=== PATIENT | female | born 1950 | race Caucasian/White ===

== ENCOUNTER 2017-02-28 12:13 | Inpatient (IN) | payer MEDICARE, OTHER ==
--- NOTE | 2017-02-28 12:54 | EDM.PDOC ---
ED HISTORY OF PRESENT ILLNESS - General Chief Complaint: Respiratory Problem Stated Complaint: UNK Time Seen by Provider: 02/28/17 12:30 Source of Information: Reports: Patient History Limitations: Reports: No limitations - History of Present Illness INITIAL COMMENTS - FREE TEXT/NARRATIVE: HISTORY AND PHYSICAL: History of present illness: [Patient comes to the emergency room via EMS. She complains of cough and not feeling well for the past 5 days. She has felt feverish during this time but has not checked her temperature. Is coughing up sputum that is green to clear in color. Has felt some shortness of breath. Generalized body aches. Denies sore throat and earache. She's had decreased appetite and hasn't had the energy to bathe in the past 5 days. She denies abdominal pain, nausea, vomiting. No change in bowel or bladder. Has been taking 2 Tylenol per day and Mucinex cough syrup from time to time. She did not have a flu shot this year. EMS reports O2 sat 83% on room air upon presentation. 15L nonbreather was applied by EMS, resulting in O2 sat of 97%. Review of systems: As per history of present illness and below otherwise all systems reviewed and negative. Past medical history: As per history of present illness and as reviewed below otherwise noncontributory. Surgical history: As per history of present illness and as reviewed below otherwise noncontributory. Social history: No reported history of drug or alcohol abuse. Family history: As per history of present illness and as reviewed below otherwise noncontributory. Physical exam: O2 sat on 3 liters per NC = 95%. HEENT: Atraumatic, normocephalic. TMs are pearly oneil and without effusion bilaterally. mucous membranes moist, throat clear. neck supple, no lymphadenopathy. Lungs: Crackles to left lower lobes. Lung sounds are diminished throughout. Heart: S1S2, regular rate and rhythm. negative for clicks, rubs. Abdomen: Soft, nondistended, nontender. No masses guarding or rebound. Pelvis: Stable nontender. Genitourinary: Deferred. Rectal: Deferred. Extremities: Atraumatic, negative for cords or calf pain. No cyanosis or edema to feet or lower legs. Neurovascular unremarkable. Neuro: Awake, alert, oriented. Motor and sensory unremarkable throughout. Exam nonfocal. Diagnostics: [Chest x-ray, CBC, CMP, lactic acid, influenza swab] Therapeutics: [Normal saline 1 L at 500 mL/hour, ceftriaxone 1 g IV, azithromycin 500 mg IV, Tylenol 650 mg by mouth] Impression: [Bibasilar pneumonia] Plan: [Patient initially refuses any x-ray pending lab results. She later is agreeable to chest x-ray. Discussed with patient that her chest x-ray shows bilateral lobe pneumonia and and her labs show elevated white blood cell count. BUN 76. decreased renal function likely due to dehydration. Influenza swab is negative. Results and patient's condition are reviewed w/ Dr. Nelson, hospitalist, who agrees to accept patient as inpatient. Patient is agreeable to admission. ] Definitive disposition and diagnosis as appropriate pending reevaluation and review of above. - Related Data Allergies/ADRs: Allergies Allergy/AdvReac Type Severity Reaction Status Date / Time No Known Allergies Allergy Verified 02/28/17 12:21 Home Meds: Home Meds Aspirin [William Chewable Aspirin] 1 tab PO DAILY 12/15/14 [History] Diclofenac Sodium [Voltaren] 1 tab PO DAILY 12/15/14 [History] Doxepin [SINEquan] 12/15/14 [History] Metoprolol Succinate [Toprol XL] 0.5 tab PO BEDTIME 12/15/14 [History] Rosuvastatin [Crestor] 1 tab PO DAILY 12/15/14 [History] Valsartan [Diovan] PO DAILY 12/15/14 [History] Venlafaxine [Effexor] 2 tab PO BEDTIME 12/15/14 [History] Past Medical History Cardiovascular History: Reports: Hypertension Gastrointestinal History: Reports: None Psychiatric History: Reports: Depression - Past Surgical History Cardiovascular Surgical History: Reports: None GI Surgical History: Reports: Appendectomy Social & Family History - Family History Family Medical History: Noncontributory - Tobacco Use Smoking Status *Q: Former Smoker Years of Tobacco use: 40 Packs/Tins Daily: 1 Used Tobacco, but Quit: Yes Month Tobacco Last Used: 01/2017 - Caffeine Use Caffeine Use: Reports: Soda Caffeine Use Comment: 2 diet coke/day - Alcohol Use Days Per Week of Alcohol Use: 0 - Recreational Drug Use Recreational Drug Use: No ED ROS GENERAL - Review of Systems Review Of Systems: ROS reveals no pertinent complaints other than HPI. ED EXAM, GENERAL - Physical Exam Exam: See Below Course - Vital Signs Last Recorded V/S: Last Vital Signs Temp 99.1 F 02/28/17 12:43 Pulse 115 H 02/28/17 13:37 Resp 20 02/28/17 13:37 BP 126/82 02/28/17 13:37 Pulse Ox 92 L 02/28/17 13:37 - Orders/Labs/Meds Orders: Active Orders 24 hr Category Date Time Status Admission Status [Patient Status] [ADT] Stat ADT 02/28/17 14:41 Active Azithromycin [Zithromax] 500 mg Med 02/28/17 14:15 Active Sodium Chloride 0.9% [Normal Saline] 250 ml IV Q24H Sodium Chloride 0.9% [Normal Saline] 1,000 ml Med 02/28/17 14:00 Active IV STAT Medication Orders Azithromycin 500 mg/ Sodium (Chloride) 250 mls @ 250 mls/hr IV Q24H [facility]ZA Sodium Chloride (Normal Saline) 1,000 mls @ 500 mls/hr IV STAT ONE Stop: 02/28/17 15:59 Last Admin: 02/28/17 14:36 Dose: 500 mls/hr Labs: Laboratory Tests 02/28/17 02/28/17 02/28/17 Range/Units 12:39 12:39 12:39 WBC 15.14 H (4.0-11.0) K/uL RBC 4.04 L (4.30-5.90) M/uL Hgb 10.7 L (12.0-16.0) g/dL Hct 32.2 L (36.0-46.0) % MCV 79.7 L (80.0-98.0) fL MCH 26.5 L (27.0-32.0) pg MCHC 33.2 (31.0-37.0) g/dL RDW Std Deviation 44.1 (28.0-62.0) fl RDW Coeff of Jose 15 (11.0-15.0) % Plt Count 418 H (150-400) K/uL MPV 9.10 (7.40-12.00) fL Add Manual Diff YES Neutrophils % (Manual) 69 (48.0-80.0) % Band Neutrophils % 11 % Lymphocytes % (Manual) 6 L (16.0-40.0) % Monocytes % (Manual) 14 (0.0-15.0) % Nucleated RBC % 0.0 /100WBC Absolute Seg Neuts 10.4 Band Neutrophils # 1.7 Lymphocytes # (Manual) 0.9 Monocytes # (Manual) 2.1 Nucleated RBCs # 0 K/uL Lactate 0.9 (0.20-2.00) mmol/L Sodium 130 L (136-146) mmol/L Potassium 3.4 L (3.5-5.1) mmol/L Chloride 95 L (98-110) mmol/L Carbon Dioxide 20 L (21-31) mmol/L BUN 76 H (6.0-23.0) mg/dL Creatinine 1.6 H (0.6-1.5) mg/dL Est Cr Clr Drug Dosing 32.56 mL/min Estimated GFR (MDRD) 32.2 ml/min Glucose 156 H (60-110) mg/dL Calcium 9.7 (8.8-10.8) mg/dL Total Bilirubin 0.6 (0.1-1.5) mg/dL AST 10 (5-40) IU/L ALT 12 (8-54) IU/L Alkaline Phosphatase 103 (40-150) Total Protein 7.8 (6.0-8.0) g/dL Albumin 3.3 L (3.4-4.8) g/dL Globulin 4.5 H (2.0-3.5) g/dL Albumin/Globulin Ratio 0.7 L (1.3-2.8) Meds: Medications Generic Name Dose Route Start Last Admin Trade Name Freq PRN Reason Stop Dose Admin Azithromycin 500 mg/ Sodium 250 mls @ 250 mls/hr 02/28/17 14:15 Chloride IV Q24H [facility] Sodium Chloride 1,000 mls @ 500 mls/hr 02/28/17 14:00 02/28/17 14:36 Normal Saline IV 02/28/17 15:59 500 mls/hr STAT ONE Administration Discontinued Medications Generic Name Dose Route Start Last Admin Trade Name Freq PRN Reason Stop Dose Admin Acetaminophen 650 mg 02/28/17 14:12 Tylenol PO 02/28/17 14:13 NOW ONE Ceftriaxone Sodium 1,000 mg/ 50 mls @ 200 mls/hr 02/28/17 14:02 Sodium Chloride IV 02/28/17 14:16 ONETIME ONE Departure - Departure Time of Disposition: 14:40 Disposition: Admitted As Inpatient 67 Condition: good Clinical Impression: Pneumonia Qualifiers: Pneumonia type: due to unspecified organism Laterality: bilateral Lung location : lower lobe of lung Qualified Code(s): J18.9 - Pneumonia, unspecified organism Forms: ED Department Discharge - My Orders Last 24 Hours: My Active Orders 02/28/17 14:00 Sodium Chloride 0.9% [Normal Saline] 1,000 ml IV STAT 02/28/17 14:15 Azithromycin [Zithromax] 500 mg Sodium Chloride 0.9% [Normal Saline] 250 ml IV Q24H 02/28/17 14:41 Admission Status [Patient Status] [ADT] Stat - Assessment/Plan Last 24 Hours: My Active Orders 02/28/17 14:00 Sodium Chloride 0.9% [Normal Saline] 1,000 ml IV STAT 02/28/17 14:15 Azithromycin [Zithromax] 500 mg Sodium Chloride 0.9% [Normal Saline] 250 ml IV Q24H 02/28/17 14:41 Admission Status [Patient Status] [ADT] Stat
--- NOTE | 2017-02-28 13:45 | CR ---
EXAMINATION: Two-view chest (PA and Lateral views). HISTORY: Cough. FINDINGS: The trachea is midline. The cardiomediastinal silhouette is within normal limits. There is mild biba silar, left greater than right infiltrate. No pleural effusion or pneumothorax. Osseous structures appear unremarkable. IMPRESSION: Bibasilar, prominently left basilar infiltrate, likely representing developing pneumonia.
[2017-02-28] MEDS ORDERED: Sodium Chloride 0.9% 1,000 ML IV ONE (14:00)
[2017-02-28] MEDS ORDERED: cefTRIAXone 1,000 MG in Sodium Chloride 0.9% 50 ML IV ONE (14:02)
[2017-02-28] MEDS ORDERED: Acetaminophen 325 MG Tab PO ONE (14:12)
[2017-02-28] MEDS ORDERED: Azithromycin 500 MG in Sodium Chloride 0.9% 250 ML IV SCH (14:15)
[2017-02-28] MEDS ORDERED: cefTRIAXone 1 GM in Premix Bag 1 BAG IV ONE (15:00)
--- NOTE | 2017-02-28 15:28 | PCM.HP ---
<Jessica Lynn M - Last Filed: 02/28/17 15:39> H&P History of Present Illness - General Date of Service: 02/28/17 Admit Problem/Dx: Pneumonia Source of Information: Patient History Limitations: Reports: No limitations - History of Present Illness Initial Comments - Free Text/Narative: This 67 year old female with pmh of HTN, dyslipidemia and a smoker presented to the ED today via EMS with complaints of cold, body aches and generalized weakness. She reports she started getting a cold approximately 5 days ago and it has worsened. She is not eating or drinking, she has a productive cough with SOB, no abdominal pain, but is having diarrhea with incontinent episodes. She has not been on antibiotics recently nor has she been hospitalized. She denies having influenza vaccine or a pneumonia vaccine. She has not had any sick contacts. She denies any chest pain or palpitations, no urinary symptoms, no neck stiffness or pain. In the ED leukocytosis noted, 15,140, hgb 10.7 Platelets 418. Na 130, K+ 3.4 Cl 85, BUN 76, Cr 1.6, and glucose 156. Influenza swab negative. She was noted to be tachycardic with hypoxia. She was placed on 4 L sating mid 90s. BC obtained. Lactate 0.9. CXR showed bibasilar but prominently L basilar infiltrate. She will be admitted with sepsis, pneumonia, hypoxia and acute kidney injury. PCP, Dr Alonzo - Related Data Allergies/Adverse Reactions: Allergies Allergy/AdvReac Type Severity Reaction Status Date / Time No Known Allergies Allergy Verified 02/28/17 12:21 Home Medications: Home Meds Aspirin [William Chewable Aspirin] 1 tab PO DAILY 12/15/14 [History] Doxepin [SINEquan] 10 mg PO DAILY 12/15/14 [History] Metoprolol Succinate [Toprol XL] 0.5 tab PO BEDTIME 12/15/14 [History] Rosuvastatin [Crestor] 1 tab PO DAILY 12/15/14 [History] Valsartan [Diovan] 40 mg PO DAILY 12/15/14 [History] Venlafaxine [Effexor] 2 tab PO BEDTIME 12/15/14 [History] Past Medical History Cardiovascular History: Reports: High cholesterol, Hypertension. Denies: Blood clots/VTE/DVT, CAD, Heart Failure, [place] Respiratory History: Reports: None. Denies: Asthma, COPD, PE Gastrointestinal History: Reports: None. Denies: Diverticulosis, GERD, GI bleed Genitourinary History: Reports: None. Denies: Acute renal failure, Chronic renal insuffiency Musculoskeletal History: Reports: None Psychiatric History: Reports: Anxiety, Depression Endocrine/Metabolic History: Reports: Obesity/BMI 30+. Denies: Diabetes, type II, Hypothyroidism - Past Surgical History Cardiovascular Surgical History: Reports: None GI Surgical History: Reports: Appendectomy Social & Family History - Family History Family Medical History: Noncontributory - Tobacco Use Smoking Status *Q: Former Smoker Years of Tobacco use: 40 Packs/Tins Daily: 1 Used Tobacco, but Quit: Yes Month Tobacco Last Used: 01/2017 - Caffeine Use Caffeine Use: Reports: Soda Caffeine Use Comment: 2 diet coke/day - Alcohol Use Days Per Week of Alcohol Use: 0 - Recreational Drug Use Recreational Drug Use: No - Living Situation & Occupation Living situation: Reports: alone H&P Review of Systems - Review of Systems: Review Of Systems: See Below General: Reports: fever, chills, malaise, weakness, fatigue, decreased appetite , other (hasn't bathed in 5 days, too weak) HEENT: Denies: eye pain, headaches, sore throat, visual changes Pulmonary: Reports: Shortness of Breath, Cough, Sputum Cardiovascular: Reports: no symptoms. Denies: chest pain, edema, lightheadedness Gastrointestinal: Reports: Anorexia, Diarrhea, Decreased appetite. Denies: Abdominal pain, Black stool, Bloody stool, Distension, Nausea, Vomiting Genitourinary: Reports: no symptoms. Denies: dysuria, frequency, burning, pain Musculoskeletal: Reports: no symptoms. Denies: neck pain, back pain Skin: Reports: no symptoms Psychiatric: Reports: no symptoms Neurological: Reports: No Symptoms Hematologic/Lymphatic: Reports: no symptoms Immunologic: Reports: no symptoms Exam - Exam Exam: See Below - Vital Signs Vital Signs: Last Vital Signs Temp 97 F 02/28/17 15:04 Pulse 104 H 02/28/17 15:04 Resp 22 H 02/28/17 15:04 BP 105/57 L 02/28/17 15:04 Pulse Ox 96 02/28/17 15:04 Weight: 114.1 kg - Exam Quality Assessment: supplemental oxygen, DVT prophylaxis General: alert, oriented, other (ill appearing, and diaphoretic, pale) HEENT: Conjunctiva clear. No: Mucosa moist & pink (dry lips and mucous membranes) Neck: supple, trachea midline. No: lymphadenopathy, JVD Lungs: Clear to auscultation, Normal respiratory effort Cardiovascular: regular rate, normal S1, normal S2, tachycardia. No: systolic murmur Abdomen: normal bowel sounds, soft, other (obese abdomen). No: organomegaly, tenderness Extremities: normal inspection, normal pulses Skin: warm, dry, intact Neuro Extensive - Mental Status: alert, oriented x3, normal mood/affect, normal cognition Psychiatric: alert, normal affect, normal mood - Patient Data Result Diagrams: 02/28/17 12:39 02/28/17 12:39 *Q Meaningful Use (ADM) - VTE *Q VTE Criteria *Q: - VTE Risk Assess *Q Each Risk Factor Represents 1 Point: Serious Lung Disease Including Pneumonia, Less than 1 Month Total Score 1 Point Risk Factors: 1 Each Risk Factor Represents 2 Points: Age 60 - 74 Years, Morbid Obesity (BMI Greater than 40) Total Score 2 Point Risk Factors: 4 Each Risk Factor Represents 3 Points: None Total Score 3 Point Risk Factors: 0 Each Risk Factor Represents 5 Points: None Total Score 5 Point Risk Factors: 0 Venous Thromboembolism Risk Factor Score *Q: 5 - Stroke *Q Stroke Criteria *Q: - AMI *Q AMI Criteria *Q: - Problem List (1) Sepsis SNOMED Code(s): 85010930 ICD Code: A41.9 - SEPSIS, UNSPECIFIED ORGANISM Status: Acute Current Visit: Yes (2) Pneumonia SNOMED Code(s): 604764075 ICD Code: J18.9 - PNEUMONIA, UNSPECIFIED ORGANISM Status: Acute Current Visit: Yes Qualifiers: Pneumonia type: due to unspecified organism Laterality: bilateral Lung location: lower lobe of lung Qualified Code(s): J18.9 - Pneumonia, unspecified organism (3) HECTOR (acute kidney injury) SNOMED Code(s): 06826046 ICD Code: N17.9 - ACUTE KIDNEY FAILURE, UNSPECIFIED Status: Acute Current Visit: Yes (4) Dehydration SNOMED Code(s): 15329093 ICD Code: E86.0 - DEHYDRATION Status: Acute Current Visit: Yes (5) Diarrhea SNOMED Code(s): 28334348 ICD Code: R19.7 - DIARRHEA, UNSPECIFIED Status: Acute Current Visit: Yes Qualifiers: Diarrhea type: unspecified type Qualified Code(s): R19.7 - Diarrhea, unspecified (6) Hypoxia SNOMED Code(s): 814570077, 027954785 ICD Code: R09.02 - HYPOXEMIA Status: Acute Current Visit: Yes (7) HTN (hypertension) SNOMED Code(s): 47299548 ICD Code: I10 - ESSENTIAL (PRIMARY) HYPERTENSION Status: Chronic Current Visit: Yes Qualifiers: Hypertension type: essential hypertension Qualified Code(s): I10 - Essential (primary) hypertension (8) Depression SNOMED Code(s): 92282877 ICD Code: F32.9 - MAJOR DEPRESSIVE DISORDER, SINGLE EPISODE, UNSPECIFIED Status: Chronic Current Visit: Yes Qualifiers: Depression Type: unspecified Qualified Code(s): F32.9 - Major depressive disorder, single episode, unspecified (9) Anemia SNOMED Code(s): 213756297 ICD Code: D64.9 - ANEMIA, UNSPECIFIED Status: Acute Current Visit: Yes Qualifiers: Anemia type: unspecified type Qualified Code(s): D64.9 - Anemia, unspecified Problem List Initiated/Reviewed/Updated: Yes Orders Last 24hrs: Medication Orders Azithromycin 500 mg/ Sodium (Chloride) 250 mls @ 250 mls/hr IV Q24H [facility] Sodium Chloride (Normal Saline) 1,000 mls @ 500 mls/hr IV STAT ONE Stop: 02/28/17 15:59 Last Admin: 02/28/17 14:36 Dose: 500 mls/hr Ceftriaxone Sodium/Dextrose 1 (gm/ Premix) 50 mls @ 100 mls/hr IV ONETIME ONE Stop: 02/28/17 15:29 Last Admin: 02/28/17 14:53 Dose: 100 mls/hr Assessment/Plan Comment:: This 67 year old female admitted with community acquired pneumonia, dehydration , HECTOR, sepsis 1. Sepsis: IVFs NS 150 mls/hr. BC pending. Lactate normal. 2. Community acquired pneumonia: Rocephin and Azythromycin, Duonebs and oxygen as needed. Obtain sputum culture. 3. HECTOR: Hydrate as above, likely secondary to dehydration. Monitor in am. Hold Diovan. 4. Diarrhea: obtain stool studies 5. HTN: Stable, will monitor. Hold antihypertensive now due to sepsis. 6. Anemia: Hgb 10.7, appears pale. Will check stool and obtain iron studies. No history of anemia, will obtain most recent labwork from Dr Alonzo's clinic VTE: SCDs. hold pharmacologic until stool returns. Dispo: 3-4 days pending improvement <OmarTommy Tierney - Last Filed: 02/28/17 16:25> Exam - Vital Signs Vital Signs: Last Vital Signs Temp 36.1 C 02/28/17 15:04 Pulse 104 H 02/28/17 15:04 Resp 22 H 02/28/17 15:04 BP 105/57 L 02/28/17 15:04 Pulse Ox 96 02/28/17 15:04 - Patient Data Result Diagrams: 02/28/17 12:39 02/28/17 12:39 *Q Meaningful Use (ADM) - VTE *Q VTE Criteria *Q: - Stroke *Q Stroke Criteria *Q: - AMI *Q AMI Criteria *Q: Orders Last 24hrs: Active Orders 24 hr Category Date Time Status Communication Order [RC] PRN Care 02/28/17 15:49 Active EKG 12 Lead [EKG Documentation Completion] [RC] URGENT Care 02/28/17 15:48 Active Hemoccult [Fecal Occult Blood Collection] [RC] Care 02/28/17 15:36 Active ASDIRECTED Intake and Output [RC] Q12H Care 02/28/17 15:30 Active May Shower [RC] ASDIRECTED Care 02/28/17 15:30 Active Oxygen Therapy [RC] PRN Care 02/28/17 15:30 Active RT Aerosol Therapy [RC] ASDIRECTED Care 02/28/17 15:31 Active Up ad Corinne [RC] ASDIRECTED Care 02/28/17 15:30 Active VTE/DVT Education [RC] PER UNIT ROUTINE Care 02/28/17 15:30 Active Vital Signs [RC] Q4H Care 02/28/17 15:30 Active Heart Healthy Diet [DIET] Diet 02/28/17 Dinner Active CBC WITH AUTO DIFF [HEME] AM Lab 03/01/17 05:11 Ordered CBC WITH AUTO DIFF [HEME] AM Lab 03/02/17 05:11 Ordered CBC WITH AUTO DIFF [HEME] AM Lab 03/03/17 05:11 Ordered CBC WITH AUTO DIFF [HEME] AM Lab 03/04/17 05:11 Ordered CBC WITH AUTO DIFF [HEME] AM Lab 03/05/17 05:11 Ordered CDIFF TOX A+B [OP] Routine Lab 02/28/17 15:30 Uncollected COMPREHENSIVE METABOLIC PN,CMP [CHEM] AM Lab 03/01/17 05:11 Ordered COMPREHENSIVE METABOLIC PN,CMP [CHEM] AM Lab 03/02/17 05:11 Ordered COMPREHENSIVE METABOLIC PN,CMP [CHEM] AM Lab 03/03/17 05:11 Ordered COMPREHENSIVE METABOLIC PN,CMP [CHEM] AM Lab 03/04/17 05:11 Ordered COMPREHENSIVE METABOLIC PN,CMP [CHEM] AM Lab 03/05/17 05:11 Ordered CULTURE SPUTUM + SMEAR [RM] Stat Lab 02/28/17 15:30 Uncollected CULTURE STOOL + CAMPY+SHIGATOX [RM] Routine Lab 02/28/17 15:30 Uncollected FERRITIN [REF] Routine Lab 02/28/17 12:39 Received FOLIC ACID [CHEM] Routine Lab 02/28/17 12:39 Received Hemoccult [OCCULT BLOOD DIAGNOSTIC] [OP] Routine Lab 02/28/17 15:36 Uncollected UA W/MICROSCOPIC [URIN] Routine Lab 02/28/17 15:30 Uncollected VITAMIN B12 [CHEM] Routine Lab 02/28/17 12:39 Received WBC, STOOL [OP] Routine Lab 02/28/17 15:30 Uncollected Acetaminophen [Tylenol] Med 02/28/17 15:30 Active 650 mg PO Q4H PRN Albuterol/Ipratropium [DuoNeb 3.0-0.5 MG/3 ML] Med 02/28/17 18:00 Active 3 ml NEB Q4HRRT Azithromycin [Zithromax] Med 03/01/17 16:00 Active 500 mg PO Q24H Azithromycin [Zithromax] 500 mg Med 02/28/17 15:52 Active Sodium Chloride 0.9% [Normal Saline] 250 ml IV ONETIME Ondansetron [Zofran] Med 02/28/17 15:30 Active 4 mg IVPUSH Q4H PRN Sodium Chloride 0.9% [Normal Saline] 1,000 ml Med 02/28/17 15:30 Active IV ASDIRECTED cefTRIAXone [Rocephin in Dextrose,Iso-Osm 1 GM/50 ML] 1 Med 03/01/17 15:00 Active gm Premix Bag 1 bag IV Q24H Resuscitation Status Routine Resus Stat 02/28/17 15:30 Ordered Medication Orders Acetaminophen (Tylenol) 650 mg PO Q4H PRN PRN Reason: Pain Albuterol/Ipratropium (Duoneb 3.0-0.5 Mg/3 Ml) 3 ml NEB Q4HRRT LIZA Azithromycin (Zithromax) 500 mg PO Q24H [facility] Sodium Chloride (Normal Saline) 1,000 mls @ 150 mls/hr IV ASDIRECTED LIZA Ceftriaxone Sodium/Dextrose 1 (gm/ Premix) 50 mls @ 100 mls/hr IV Q24H [facility] Azithromycin 500 mg/ Sodium (Chloride) 250 mls @ 250 mls/hr IV ONETIME ONE Stop: 02/28/17 16:51 Ondansetron HCl (Zofran) 4 mg IVPUSH Q4H PRN PRN Reason: Nausea
[2017-02-28] MEDS ORDERED: Ondansetron 4 MG/2 ML SDV IVPUSH PRN (15:30)
[2017-02-28] MEDS ORDERED: Heparin Sodium 5,000 Units/ML Vial SUBCUT SCH (15:30)
[2017-02-28] MEDS ORDERED: Sodium Chloride 0.9% 1,000 ML IV SCH (15:30)
[2017-02-28] MEDS ORDERED: Acetaminophen 325 MG Tab PO PRN (15:30)
[2017-02-28] MEDS ORDERED: Azithromycin 500 MG in Sodium Chloride 0.9% 250 ML IV ONE (15:52)
[2017-02-28] MEDS: Insulin Aspart 100 Units/ML 3 ML Pen SUBCUT SCH (17:00)
[2017-02-28] MEDS: Albuterol/Ipratropium 3.0-0.5 MG/3 ML Neb Soln NEB SCH ×2 (18:56→21:37)
[2017-03-01] MEDS: Albuterol/Ipratropium 3.0-0.5 MG/3 ML Neb Soln NEB SCH ×6 (01:44→21:04)
[2017-03-01] MEDS: Insulin Aspart 100 Units/ML 3 ML Pen SUBCUT SCH ×3 (06:35→16:21)
[2017-03-01] MEDS: Sodium Chloride 0.9% 1,000 ML IV SCH ×2 (08:49→17:46)
[2017-03-01] MEDS ORDERED: Venlafaxine 37.5 MG Tab PO SCH (09:00)
[2017-03-01] MEDS ORDERED: Rosuvastatin 10 MG Tab PO SCH (09:00)
--- NOTE | 2017-03-01 09:37 | PCM.PN ---
- General Info Date of Service: 03/01/17 Admission Dx/Problem (Free Text): Pneumonia Subjective Update: Feeling better this am. Continues to cough and have a poor appetite. Drinking scant fluids. Denies chest pain or abdominal pain, no diarrhea since admission. Functional Status: Reports: pain controlled, tolerating diet, ambulating, urinating - Review of Systems General: Reports: Weakness, Fatigue, Malaise, Other (poor appetite). Denies: Fever HEENT: Reports: sore throat, other (raspy voice from coughing). Denies: ear pain, headaches Pulmonary: Reports: shortness of breath, pleuritic chest pain, cough, sputum Cardiovascular: Denies: Chest Pain, Palpitations, Edema Gastrointestinal: Reports: No symptoms. Denies: Abdominal pain, Diarrhea, Nausea, Vomiting Genitourinary: Reports: no symptoms. Denies: dysuria, frequency, burning, incontinence Musculoskeletal: Reports: no symptoms Skin: Reports: no symptoms Neurological: Reports: No Symptoms Psychiatric: Reports: no symptoms - Patient Data Vitals - most recent: Last Vital Signs Temp 97.2 F 03/01/17 08:00 Pulse 100 03/01/17 08:00 Resp 18 03/01/17 08:00 BP 119/59 L 03/01/17 08:00 Pulse Ox 99 03/01/17 08:00 Weight - most recent: 113.353 kg I&O - last 24 hours: Intake & Output 02/28/17 03/01/17 03/01/17 22:59 06:59 14:59 Intake Total 400 1354 500 Output Total 0 610 Balance 400 744 500 Lab Results last 24 hrs: Laboratory Results - last 24 hr 02/28/17 03/01/17 03/01/17 Range/Units 16:50 04:25 04:38 WBC 15.07 H (4.0-11.0) K/uL RBC 3.77 L (4.30-5.90) M/uL Hgb 10.0 L (12.0-16.0) g/dL Hct 30.5 L (36.0-46.0) % MCV 80.9 (80.0-98.0) fL MCH 26.5 L (27.0-32.0) pg MCHC 32.8 (31.0-37.0) g/dL RDW Std Deviation 45.5 (28.0-62.0) fl RDW Coeff of Jose 15 (11.0-15.0) % Plt Count 393 (150-400) K/uL MPV 9.20 (7.40-12.00) fL Add Manual Diff YES Neutrophils % (Manual) 73 (48.0-80.0) % Band Neutrophils % 7 % Lymphocytes % (Manual) 15 L (16.0-40.0) % Monocytes % (Manual) 5 (0.0-15.0) % Nucleated RBC % 0.0 /100WBC Absolute Seg Neuts 11.0 Band Neutrophils # 1.1 Lymphocytes # (Manual) 2.3 Monocytes # (Manual) 0.8 Nucleated RBCs # 0 K/uL Sodium (136-146) mmol/L Potassium (3.5-5.1) mmol/L Chloride (98-110) mmol/L Carbon Dioxide (21-31) mmol/L BUN (6.0-23.0) mg/dL Creatinine (0.6-1.5) mg/dL Est Cr Clr Drug Dosing mL/min Estimated GFR (MDRD) ml/min Glucose (60-110) mg/dL POC Glucose 120 H (60-110) mg/dL Calcium (8.8-10.8) mg/dL Total Bilirubin (0.1-1.5) mg/dL AST (5-40) IU/L ALT (8-54) IU/L Alkaline Phosphatase (40-150) Total Protein (6.0-8.0) g/dL Albumin (3.4-4.8) g/dL Globulin (2.0-3.5) g/dL Albumin/Globulin Ratio (1.3-2.8) Urine Color YELLOW Urine Appearance SLT CLOUDY Urine pH 5.5 (5.0-8.0) Ur Specific Aline 1.020 (1.001-1.035) Urine Protein TRACE (NEGATIVE) mg/dL Urine Glucose (UA) NEGATIVE (NEGATIVE) mg/dL Urine Ketones NEGATIVE (NEGATIVE) mg/dL Urine Occult Blood NEGATIVE (NEGATIVE) Urine Nitrite NEGATIVE (NEGATIVE) Urine Bilirubin NEGATIVE (NEGATIVE) Urine Urobilinogen 0.2 (<2.0) EU/dL Ur Leukocyte Esterase NEGATIVE (NEGATIVE) Urine RBC 0-1 (0-2/HPF) Urine WBC 0-2 (0-5/HPF) Ur Epithelial Cells MODERATE (NONE-FEW) Urine Bacteria 1+ H (NEGATIVE) Hyaline Casts 1-3 (0-2/LPF) 03/01/17 Range/Units 04:38 WBC (4.0-11.0) K/uL RBC (4.30-5.90) M/uL Hgb (12.0-16.0) g/dL Hct (36.0-46.0) % MCV (80.0-98.0) fL MCH (27.0-32.0) pg MCHC (31.0-37.0) g/dL RDW Std Deviation (28.0-62.0) fl RDW Coeff of Jose (11.0-15.0) % Plt Count (150-400) K/uL MPV (7.40-12.00) fL Add Manual Diff Neutrophils % (Manual) (48.0-80.0) % Band Neutrophils % % Lymphocytes % (Manual) (16.0-40.0) % Monocytes % (Manual) (0.0-15.0) % Nucleated RBC % /100WBC Absolute Seg Neuts Band Neutrophils # Lymphocytes # (Manual) Monocytes # (Manual) Nucleated RBCs # K/uL Sodium 133 L (136-146) mmol/L Potassium 3.8 (3.5-5.1) mmol/L Chloride 99 (98-110) mmol/L Carbon Dioxide 20 L (21-31) mmol/L BUN 78 H (6.0-23.0) mg/dL Creatinine 1.8 H (0.6-1.5) mg/dL Est Cr Clr Drug Dosing 28.78 mL/min Estimated GFR (MDRD) 28.2 ml/min Glucose 111 H (60-110) mg/dL POC Glucose (60-110) mg/dL Calcium 8.6 L (8.8-10.8) mg/dL Total Bilirubin 0.4 (0.1-1.5) mg/dL AST 8 (5-40) IU/L ALT 11 (8-54) IU/L Alkaline Phosphatase 105 (40-150) Total Protein 6.1 (6.0-8.0) g/dL Albumin 3.0 L (3.4-4.8) g/dL Globulin 3.1 (2.0-3.5) g/dL Albumin/Globulin Ratio 1.0 L (1.3-2.8) Urine Color Urine Appearance Urine pH (5.0-8.0) Ur Specific Aline (1.001-1.035) Urine Protein (NEGATIVE) mg/dL Urine Glucose (UA) (NEGATIVE) mg/dL Urine Ketones (NEGATIVE) mg/dL Urine Occult Blood (NEGATIVE) Urine Nitrite (NEGATIVE) Urine Bilirubin (NEGATIVE) Urine Urobilinogen (<2.0) EU/dL Ur Leukocyte Esterase (NEGATIVE) Urine RBC (0-2/HPF) Urine WBC (0-5/HPF) Ur Epithelial Cells (NONE-FEW) Urine Bacteria (NEGATIVE) Hyaline Casts (0-2/LPF) Wisam Results last 24 hrs: Microbiology 02/28/17 15:22 Anaerobic Blood Culture - Preliminary Blood - Venous - Lab Draw 02/28/17 19:31 Gram Stain - Preliminary Sputum - Expectorated Med Orders - Current: Current Medications Acetaminophen (Tylenol) 650 mg PO Q4H PRN PRN Reason: Pain Last Admin: 02/28/17 21:30 Dose: 650 mg Albuterol/Ipratropium (Duoneb 3.0-0.5 Mg/3 Ml) 3 ml NEB Q4HRRT [facility] Last Admin: 03/01/17 06:45 Dose: 3 ml Azithromycin (Zithromax) 500 mg PO Q24H LIZA Ceftriaxone Sodium/Dextrose 1 (gm/ Premix) 50 mls @ 100 mls/hr IV Q24H [facility] Vancomycin HCl 1,750 mg/ (Sodium Chloride) 500 mls @ 333.333 mls/hr IV Q24H [facility] Last Admin: 03/01/17 08:49 Dose: 333.333 mls/hr Sodium Chloride (Normal Saline) 1,000 mls @ 150 mls/hr IV ASDIRECTED [facility] Last Admin: 03/01/17 08:49 Dose: 150 mls/hr Insulin Aspart (Novolog) 0 unit SUBCUT TIDAC LIZA PRN Reason: Protocol Last Admin: 03/01/17 06:35 Dose: Not Given Metoprolol Succinate (Toprol Xl) 50 mg PO BEDTIME [facility] Ondansetron HCl (Zofran) 4 mg IVPUSH Q4H PRN PRN Reason: Nausea Rosuvastatin Calcium (Crestor) 10 mg PO BEDTIME [facility] Vancomycin HCl (Pharmacy To Dose - Vancomycin) 1 dose .XX ASDIRECTED [facility] Venlafaxine HCl (Effexor Xr) 75 mg PO BEDTIME [facility] Discontinued Medications Acetaminophen (Tylenol) 650 mg PO NOW ONE Stop: 02/28/17 14:13 Last Admin: 02/28/17 14:43 Dose: 650 mg Heparin Sodium (Porcine) (Heparin Sodium) 5,000 units SUBCUT Q12HR [facility] Last Admin: 02/28/17 18:53 Dose: Not Given Azithromycin 500 mg/ Sodium (Chloride) 250 mls @ 250 mls/hr IV Q24H [facility] Last Admin: 02/28/17 18:52 Dose: Not Given Sodium Chloride (Normal Saline) 1,000 mls @ 500 mls/hr IV STAT ONE Stop: 02/28/17 15:59 Last Admin: 02/28/17 14:36 Dose: 500 mls/hr Ceftriaxone Sodium 1,000 mg/ (Sodium Chloride) 50 mls @ 200 mls/hr IV ONETIME ONE Stop: 02/28/17 14:16 Last Admin: 02/28/17 16:56 Dose: Not Given Ceftriaxone Sodium/Dextrose 1 (gm/ Premix) 50 mls @ 100 mls/hr IV ONETIME ONE Stop: 02/28/17 15:29 Last Admin: 02/28/17 14:53 Dose: 100 mls/hr Sodium Chloride (Normal Saline) 1,000 mls @ 150 mls/hr IV ASDIRECTED [facility] Last Admin: 02/28/17 18:51 Dose: 150 mls/hr Azithromycin 500 mg/ Sodium (Chloride) 250 mls @ 250 mls/hr IV ONETIME ONE Stop: 02/28/17 16:51 Last Admin: 02/28/17 16:45 Dose: 250 mls/hr Rosuvastatin Calcium (Crestor) 10 mg PO DAILY [facility] Last Admin: 03/01/17 08:07 Dose: 10 mg Venlafaxine HCl (Effexor) 150 mg PO BID [facility] Last Admin: 03/01/17 08:12 Dose: 150 mg - Exam Quality Assessment: supplemental oxygen, DVT prophylaxis General: alert, oriented, cooperative HEENT: Pupils equal, Pupils reactive, EOMI, Mucous membr. moist/pink Neck: supple Lungs: Crackles, Rhonchi (bilateral bases ). No: Normal respiratory effort ( dypsnea noted with speech and exertion) Abdomen: bowel sounds present, soft, no tenderness, no distension Extremities: no edema, normal pulses Neurological: no new focal deficit Psy/Mental Status: alert, normal affect, normal mood - Problem List & Annotations (1) Sepsis SNOMED Code(s): 44067412 Code(s): A41.9 - SEPSIS, UNSPECIFIED ORGANISM Status: Acute Current Visit : Yes (2) Pneumonia SNOMED Code(s): 684222423 Code(s): J18.9 - PNEUMONIA, UNSPECIFIED ORGANISM Status: Acute Current Visit: Yes Qualifiers: Pneumonia type: due to unspecified organism Laterality: bilateral Lung location: lower lobe of lung Qualified Code(s): J18.9 - Pneumonia, unspecified organism (3) HECTOR (acute kidney injury) SNOMED Code(s): 20641216 Code(s): N17.9 - ACUTE KIDNEY FAILURE, UNSPECIFIED Status: Acute Current Visit: Yes (4) Dehydration SNOMED Code(s): 46685598 Code(s): E86.0 - DEHYDRATION Status: Acute Current Visit: Yes (5) Diarrhea SNOMED Code(s): 00602568 Code(s): R19.7 - DIARRHEA, UNSPECIFIED Status: Acute Current Visit: Yes Qualifiers: Diarrhea type: unspecified type Qualified Code(s): R19.7 - Diarrhea, unspecified (6) Hypoxia SNOMED Code(s): 217079013, 494703606 Code(s): R09.02 - HYPOXEMIA Status: Acute Current Visit: Yes (7) HTN (hypertension) SNOMED Code(s): 71062184 Code(s): I10 - ESSENTIAL (PRIMARY) HYPERTENSION Status: Chronic Current Visit: Yes Qualifiers: Hypertension type: essential hypertension Qualified Code(s): I10 - Essential (primary) hypertension (8) Depression SNOMED Code(s): 35367026 Code(s): F32.9 - MAJOR DEPRESSIVE DISORDER, SINGLE EPISODE, UNSPECIFIED Status: Chronic Current Visit: Yes Qualifiers: Depression Type: unspecified Qualified Code(s): F32.9 - Major depressive disorder, single episode, unspecified (9) Anemia SNOMED Code(s): 982778344 Code(s): D64.9 - ANEMIA, UNSPECIFIED Status: Acute Current Visit: Yes Qualifiers: Anemia type: unspecified type Qualified Code(s): D64.9 - Anemia, unspecified - Problem List Review Problem List Initiated/Reviewed/Updated: Yes - My Orders Last 24 Hours: My Active Orders 02/28/17 12:39 FERRITIN [REF] Routine 02/28/17 15:30 Intake and Output [RC] Q12H May Shower [RC] ASDIRECTED Oxygen Therapy [RC] PRN Up ad Corinne [RC] ASDIRECTED VTE/DVT Education [RC] PER UNIT ROUTINE Vital Signs [RC] Q4H CDIFF TOX A+B [OP] Routine CULTURE STOOL + CAMPY+SHIGATOX [RM] Routine WBC, STOOL [OP] Routine Acetaminophen [Tylenol] 650 mg PO Q4H PRN Ondansetron [Zofran] 4 mg IVPUSH Q4H PRN Resuscitation Status Routine 02/28/17 15:31 RT Aerosol Therapy [RC] ASDIRECTED 02/28/17 15:36 Hemoccult [Fecal Occult Blood Collection] [RC] ASDIRECTED Hemoccult [OCCULT BLOOD DIAGNOSTIC] [OP] Routine 02/28/17 16:44 Blood Glucose Check, Bedside [RC] TIDAC 02/28/17 17:00 Insulin Aspart [NovoLOG] See Protocol SUBCUT TIDAC 02/28/17 18:00 Albuterol/Ipratropium [DuoNeb 3.0-0.5 MG/3 ML] 3 ml NEB Q4HRRT 02/28/17 19:31 CULTURE SPUTUM + SMEAR [RM] Stat 02/28/17 Dinner Heart Healthy Diet [DIET] 03/01/17 08:00 Vancomycin Pharmacy to Dose [Pharmacy to Dose - Vancomycin] 1 dose .XX ASDIRECTED 03/01/17 08:15 Vancomycin 1,750 mg Sodium Chloride 0.9% [Normal Saline] 500 ml IV Q24H 03/01/17 08:45 Sodium Chloride 0.9% [Normal Saline] 1,000 ml IV ASDIRECTED 03/01/17 15:00 cefTRIAXone [Rocephin in Dextrose,Iso-Osm 1 GM/50 ML] 1 gm Premix Bag 1 bag IV Q24H 03/01/17 16:00 Azithromycin [Zithromax] 500 mg PO Q24H 03/02/17 05:11 CBC WITH AUTO DIFF [HEME] AM COMPREHENSIVE METABOLIC PN,CMP [CHEM] AM 03/03/17 05:11 CBC WITH AUTO DIFF [HEME] AM COMPREHENSIVE METABOLIC PN,CMP [CHEM] AM 03/04/17 05:11 CBC WITH AUTO DIFF [HEME] AM COMPREHENSIVE METABOLIC PN,CMP [CHEM] AM 03/05/17 05:11 CBC WITH AUTO DIFF [HEME] AM COMPREHENSIVE METABOLIC PN,CMP [CHEM] AM - Plan Plan:: This 67 year old female admitted with community acquired pneumonia, dehydration , HECTOR, sepsis 1. Sepsis: IVFs NS 125. Bacteremia, BC 2/4 gram positive cocci in clusters . Added Vancomycin to treatment. WISAM pending. 2. Community acquired pneumonia: Continue Rocephin and Azythromycin, and started Vancomycin. Sputum culture reveals gram positive cocci in clusters, chains and pairs. Duonebs and oxygen as needed. 3. HECTOR: Slight increase in BUN/Cr Continuve IVFs. Was taking both Diclofenac and Ibuprofen, which may have impacted HECTOR secondary to dehydration. Will recommend no further NSAID use. Monitor in am. Hold Diovan. 4. Diarrhea: obtain stool studies. Not having any diarrhea now. She reports this diarrhea is no different from normal, she has some diarrhea every once and awhile and is incontinent from it. 5. HTN: Stable, will monitor. Hold antihypertensive now due to sepsis. 6. Anemia: Hgb 10.0, appears pale. Will check stool. No history of anemia. Appears to be iron deficiency possibly from chronic disease. Will monitor, start iron. Follow up with PCP. VTE: SCDs. Heparin. Dispo: 3-4 days pending improvement
[2017-03-01] MEDS: Azithromycin 250 MG Tab PO SCH (15:00)
[2017-03-01] MEDS ORDERED: cefTRIAXone 1 GM in Premix Bag 1 BAG IV SCH (15:00)
[2017-03-01] MEDS ORDERED: Calcium Carbonate 500 MG Tab.Chew PO PRN (15:43)
[2017-03-01] MEDS: Doxepin 25 MG Cap PO SCH (20:46)
[2017-03-01] MEDS: Metoprolol Succinate 50 MG Tab.ER PO SCH (20:47)
[2017-03-01] MEDS: Heparin Sodium 5,000 Units/ML Vial SUBCUT SCH (20:48)
[2017-03-02] MEDS: Sodium Chloride 0.9% 1,000 ML IV SCH ×2 (01:22→08:40)
[2017-03-02] MEDS: Albuterol/Ipratropium 3.0-0.5 MG/3 ML Neb Soln NEB SCH ×6 (01:22→21:08)
[2017-03-02 05:28] LABS: CHLORIDE,CL 104 mmol/L (98-110); SODIUM,NA 136 mmol/L (136-146)
[2017-03-02] MEDS: Insulin Aspart 100 Units/ML 3 ML Pen SUBCUT SCH ×3 (06:50→16:52)
[2017-03-02] MEDS ORDERED: Potassium Chloride 20 MEQ Tab.ER PO ONE (07:55)
[2017-03-02] MEDS ORDERED: Calcium Carbonate 500 MG Tab.Chew PO ONE (07:55)
[2017-03-02] MEDS: Aspirin 81 MG Tab.EC PO SCH (08:26)
[2017-03-02] MEDS: Heparin Sodium 5,000 Units/ML Vial SUBCUT SCH ×2 (08:27→20:36)
--- NOTE | 2017-03-02 09:26 | PCM.PN ---
- General Info Date of Service: 03/02/17 Admission Dx/Problem (Free Text): Pneumonia Subjective Update: Continues to feel improved. Coughing is improving, sputum is now clear instead of green. Still feeling fatigued. And still has no appetite. Functional Status: Reports: pain controlled, ambulating, urinating - Review of Systems General: Reports: Fatigue, Malaise. Denies: Fever HEENT: Reports: no symptoms, other (raspy voice) Pulmonary: Reports: cough, sputum (clear now). Denies: shortness of breath Cardiovascular: Reports: No Symptoms. Denies: Chest Pain, Palpitations, Edema Gastrointestinal: Reports: No symptoms. Denies: Abdominal pain, Nausea, Vomiting Genitourinary: Reports: no symptoms. Denies: dysuria, frequency, burning Musculoskeletal: Reports: no symptoms. Denies: neck pain Skin: Reports: no symptoms Neurological: Reports: No Symptoms Psychiatric: Reports: no symptoms - Patient Data Vitals - most recent: Last Vital Signs Temp 96.2 F 03/02/17 07:22 Pulse 99 03/02/17 07:22 Resp 18 03/02/17 07:22 BP 122/58 L 03/02/17 07:22 Pulse Ox 92 L 03/02/17 07:22 Weight - most recent: 113.353 kg I&O - last 24 hours: Intake & Output 03/01/17 03/02/17 03/02/17 22:59 06:59 14:59 Intake Total 1300 1200 Output Total 600 1180 Balance 700 20 Lab Results last 24 hrs: Laboratory Results - last 24 hr 03/01/17 03/01/17 03/01/17 Range/Units 06:11 11:53 16:21 WBC (4.0-11.0) K/uL RBC (4.30-5.90) M/uL Hgb (12.0-16.0) g/dL Hct (36.0-46.0) % MCV (80.0-98.0) fL MCH (27.0-32.0) pg MCHC (31.0-37.0) g/dL RDW Std Deviation (28.0-62.0) fl RDW Coeff of Jose (11.0-15.0) % Plt Count (150-400) K/uL MPV (7.40-12.00) fL Neut % (Auto) (48.0-80.0) % Lymph % (Auto) (16.0-40.0) % [place] % (Auto) (0.0-15.0) % Eos % (Auto) (0.0-7.0) % Baso % (Auto) (0.0-1.5) % Neut # (Auto) (1.4-5.7) K/uL Lymph # (Auto) (0.6-2.4) K/uL [place] # (Auto) (0.0-0.8) K/uL Eos # (Auto) (0.0-0.7) K/uL Baso # (Auto) (0.0-0.1) K/uL Nucleated RBC % /100WBC Nucleated RBCs # K/uL Sodium (136-146) mmol/L Potassium (3.5-5.1) mmol/L Chloride (98-110) mmol/L Carbon Dioxide (21-31) mmol/L BUN (6.0-23.0) mg/dL Creatinine (0.6-1.5) mg/dL Est Cr Clr Drug Dosing mL/min Estimated GFR (MDRD) ml/min Glucose (60-110) mg/dL POC Glucose 148 H 110 116 H (60-110) mg/dL Calcium (8.8-10.8) mg/dL Total Bilirubin (0.1-1.5) mg/dL AST (5-40) IU/L ALT (8-54) IU/L Alkaline Phosphatase (40-150) Total Protein (6.0-8.0) g/dL Albumin (3.4-4.8) g/dL Globulin (2.0-3.5) g/dL Albumin/Globulin Ratio (1.3-2.8) 03/02/17 03/02/17 03/02/17 Range/Units 04:45 04:45 06:47 WBC 9.73 (4.0-11.0) K/uL RBC 3.21 L (4.30-5.90) M/uL Hgb 8.6 L (12.0-16.0) g/dL Hct 26.4 L (36.0-46.0) % MCV 82.2 (80.0-98.0) fL MCH 26.8 L (27.0-32.0) pg MCHC 32.6 (31.0-37.0) g/dL RDW Std Deviation 47.4 (28.0-62.0) fl RDW Coeff of Jose 16 H (11.0-15.0) % Plt Count 366 (150-400) K/uL MPV 9.10 (7.40-12.00) fL Neut % (Auto) 76.3 (48.0-80.0) % Lymph % (Auto) 11.1 L (16.0-40.0) % [place] % (Auto) 11.4 (0.0-15.0) % Eos % (Auto) 1.1 (0.0-7.0) % Baso % (Auto) 0.1 (0.0-1.5) % Neut # (Auto) 7.4 H (1.4-5.7) K/uL Lymph # (Auto) 1.1 (0.6-2.4) K/uL [place] # (Auto) 1.1 H (0.0-0.8) K/uL Eos # (Auto) 0.1 (0.0-0.7) K/uL Baso # (Auto) 0.0 (0.0-0.1) K/uL Nucleated RBC % 0.0 /100WBC Nucleated RBCs # 0 K/uL Sodium 136 (136-146) mmol/L Potassium 3.4 L (3.5-5.1) mmol/L Chloride 104 (98-110) mmol/L Carbon Dioxide 21 (21-31) mmol/L BUN 42 H (6.0-23.0) mg/dL Creatinine 0.9 (0.6-1.5) mg/dL Est Cr Clr Drug Dosing 57.56 mL/min Estimated GFR (MDRD) > 60.0 ml/min Glucose 96 (60-110) mg/dL POC Glucose 99 (60-110) mg/dL Calcium 7.9 L (8.8-10.8) mg/dL Total Bilirubin 0.3 (0.1-1.5) mg/dL AST 10 (5-40) IU/L ALT 11 (8-54) IU/L Alkaline Phosphatase 85 (40-150) Total Protein 5.3 L (6.0-8.0) g/dL Albumin 2.6 L (3.4-4.8) g/dL Globulin 2.7 (2.0-3.5) g/dL Albumin/Globulin Ratio 1.0 L (1.3-2.8) Wisam Results last 24 hrs: Microbiology 02/28/17 15:22 Aerobic Blood Culture - Preliminary Blood - Venous - Lab Draw Anaerobic Blood Culture - Preliminary 02/28/17 19:31 Gram Stain - Final Sputum - Expectorated Sputum Culture - Final Staphylococcus Aureus Normal Respiratory [place] 03/01/17 17:40 Clostridium difficile Toxin A&B (M) - Final Stool / Feces Negative for C.Diff Toxin/AG 03/01/17 17:40 Campylobacter Antigen Assay - Final Stool / Feces NEGATIVE CAMPYLOBACTER AG 03/01/17 17:40 Stool for WBCs - Final Stool / Feces POSITIVE FOR WBC'S 03/01/17 17:40 Stool Occult Blood (WISAM) - Final Stool / Feces NEGATIVE OCCULT BLOOD Med Orders - Current: Current Medications Acetaminophen (Tylenol) 650 mg PO Q4H PRN PRN Reason: Pain Last Admin: 02/28/17 21:30 Dose: 650 mg Albuterol/Ipratropium (Duoneb 3.0-0.5 Mg/3 Ml) 3 ml NEB Q4HRRT [facility] Last Admin: 03/02/17 05:54 Dose: 3 ml Aspirin (Halfprin) 162 mg PO DAILY [facility] Last Admin: 03/02/17 08:26 Dose: 162 mg Azithromycin (Zithromax) 500 mg PO Q24H [facility] Last Admin: 03/01/17 15:00 Dose: 500 mg Calcium Carbonate/Glycine (Tums) 1,000 mg PO Q2HR PRN PRN Reason: Indigestion Last Admin: 03/01/17 16:19 Dose: 1,000 mg Doxepin HCl (Sinequan) 150 mg PO BEDTIME [facility] Last Admin: 03/01/17 20:46 Dose: 150 mg Heparin Sodium (Porcine) (Heparin Sodium) 5,000 units SUBCUT Q12HR [facility] Last Admin: 03/02/17 08:27 Dose: 5,000 units Ceftriaxone Sodium/Dextrose 1 (gm/ Premix) 50 mls @ 100 mls/hr IV Q24H [facility] Last Admin: 03/01/17 15:00 Dose: 100 mls/hr Vancomycin HCl 1,750 mg/ (Sodium Chloride) 500 mls @ 333.333 mls/hr IV Q24H [facility] Last Admin: 03/02/17 08:36 Dose: 333.333 mls/hr Insulin Aspart (Novolog) 0 unit SUBCUT TIDAC [facility] PRN Reason: Protocol Last Admin: 03/02/17 06:50 Dose: Not Given Methylprednisolone Sodium Succinate (Solu-Medrol) 40 mg IVPUSH Q8H [facility] Metoprolol Succinate (Toprol Xl) 50 mg PO BEDTIME [facility] Last Admin: 03/01/17 20:47 Dose: 50 mg Ondansetron HCl (Zofran) 4 mg IVPUSH Q4H PRN PRN Reason: Nausea Rosuvastatin Calcium (Crestor) 10 mg PO BEDTIME [facility] Vancomycin HCl (Pharmacy To Dose - Vancomycin) 1 dose .XX ASDIRECTED [facility] Venlafaxine HCl (Effexor Xr) 75 mg PO BEDTIME [facility] Discontinued Medications Acetaminophen (Tylenol) 650 mg PO NOW ONE Stop: 02/28/17 14:13 Last Admin: 02/28/17 14:43 Dose: 650 mg Calcium Carbonate/Glycine (Tums) 1,000 mg PO ONETIME ONE Stop: 03/02/17 07:56 Last Admin: 03/02/17 08:27 Dose: 1,000 mg Heparin Sodium (Porcine) (Heparin Sodium) 5,000 units SUBCUT Q12HR [facility] Last Admin: 02/28/17 18:53 Dose: Not Given Azithromycin 500 mg/ Sodium (Chloride) 250 mls @ 250 mls/hr IV Q24H [facility] Last Admin: 02/28/17 18:52 Dose: Not Given Sodium Chloride (Normal Saline) 1,000 mls @ 500 mls/hr IV STAT ONE Stop: 02/28/17 15:59 Last Admin: 02/28/17 14:36 Dose: 500 mls/hr Ceftriaxone Sodium 1,000 mg/ (Sodium Chloride) 50 mls @ 200 mls/hr IV ONETIME ONE Stop: 02/28/17 14:16 Last Admin: 02/28/17 16:56 Dose: Not Given Ceftriaxone Sodium/Dextrose 1 (gm/ Premix) 50 mls @ 100 mls/hr IV ONETIME ONE Stop: 02/28/17 15:29 Last Admin: 02/28/17 14:53 Dose: 100 mls/hr Sodium Chloride (Normal Saline) 1,000 mls @ 150 mls/hr IV ASDIRECTED [facility] Last Admin: 02/28/17 18:51 Dose: 150 mls/hr Azithromycin 500 mg/ Sodium (Chloride) 250 mls @ 250 mls/hr IV ONETIME ONE Stop: 02/28/17 16:51 Last Admin: 02/28/17 16:45 Dose: 250 mls/hr Sodium Chloride (Normal Saline) 1,000 mls @ 150 mls/hr IV ASDIRECTED [facility] Last Admin: 03/02/17 08:40 Dose: 150 mls/hr Potassium Chloride (Klor-Con M20) 40 meq PO ONETIME ONE Stop: 03/02/17 07:56 Last Admin: 03/02/17 08:25 Dose: 40 meq Rosuvastatin Calcium (Crestor) 10 mg PO DAILY [facility] Last Admin: 03/01/17 08:07 Dose: 10 mg Venlafaxine HCl (Effexor) 150 mg PO BID [facility] Last Admin: 03/01/17 08:12 Dose: 150 mg - Exam Quality Assessment: supplemental oxygen General: alert, oriented, cooperative HEENT: Pupils equal, Pupils reactive, EOMI, Mucous membr. moist/pink Neck: supple. No: lymphadenopathy Lungs: Normal respiratory effort, Decreased breath sounds, Rhonchi, Wheezing Cardiovascular: Regular Rate, Regular Rhythm, No Murmurs Abdomen: bowel sounds present, soft, no tenderness, no distension Extremities: no edema, normal pulses Neurological: no new focal deficit Psy/Mental Status: alert, normal affect, normal mood - Problem List & Annotations (1) Sepsis SNOMED Code(s): 40201819 Code(s): A41.9 - SEPSIS, UNSPECIFIED ORGANISM Status: Resolved Current Visit: Yes (2) Pneumonia SNOMED Code(s): 940643046 Code(s): J18.9 - PNEUMONIA, UNSPECIFIED ORGANISM Status: Acute Current Visit: Yes Qualifiers: Pneumonia type: due to unspecified organism Laterality: bilateral Lung location: lower lobe of lung Qualified Code(s): J18.9 - Pneumonia, unspecified organism (3) HECTOR (acute kidney injury) SNOMED Code(s): 63963786 Code(s): N17.9 - ACUTE KIDNEY FAILURE, UNSPECIFIED Status: Acute Current Visit: Yes (4) Dehydration SNOMED Code(s): 31132489 Code(s): E86.0 - DEHYDRATION Status: Acute Current Visit: Yes (5) Diarrhea SNOMED Code(s): 51563699 Code(s): R19.7 - DIARRHEA, UNSPECIFIED Status: Chronic Current Visit: Yes Qualifiers: Diarrhea type: unspecified type Qualified Code(s): R19.7 - Diarrhea, unspecified (6) Hypoxia SNOMED Code(s): 019152566, 548071975 Code(s): R09.02 - HYPOXEMIA Status: Acute Current Visit: Yes (7) HTN (hypertension) SNOMED Code(s): 83757489 Code(s): I10 - ESSENTIAL (PRIMARY) HYPERTENSION Status: Chronic Current Visit: Yes Qualifiers: Hypertension type: essential hypertension Qualified Code(s): I10 - Essential (primary) hypertension (8) Depression SNOMED Code(s): 34179062 Code(s): F32.9 - MAJOR DEPRESSIVE DISORDER, SINGLE EPISODE, UNSPECIFIED Status: Chronic Current Visit: Yes Qualifiers: Depression Type: unspecified Qualified Code(s): F32.9 - Major depressive disorder, single episode, unspecified (9) Anemia SNOMED Code(s): 331299667 Code(s): D64.9 - ANEMIA, UNSPECIFIED Status: Acute Current Visit: Yes Qualifiers: Anemia type: unspecified type Qualified Code(s): D64.9 - Anemia, unspecified - Problem List Review Problem List Initiated/Reviewed/Updated: Yes - My Orders Last 24 Hours: My Active Orders 03/01/17 15:00 cefTRIAXone [Rocephin in Dextrose,Iso-Osm 1 GM/50 ML] 1 gm Premix Bag 1 bag IV Q24H 03/01/17 15:43 Calcium Carbonate [Tums] 1,000 mg PO Q2HR PRN 03/01/17 16:00 Azithromycin [Zithromax] 500 mg PO Q24H 03/01/17 17:40 CULTURE STOOL + CAMPY+SHIGATOX [RM] Routine 03/01/17 21:00 Doxepin [SINEquan] 150 mg PO BEDTIME Heparin Sodium 5,000 units SUBCUT Q12HR 03/02/17 09:00 Aspirin [Halfprin] 162 mg PO DAILY 03/02/17 09:15 methylPREDNISolone Sod Succ [Solu-MEDROL] 40 mg IVPUSH Q8H 03/03/17 05:11 CBC WITH AUTO DIFF [HEME] AM COMPREHENSIVE METABOLIC PN,CMP [CHEM] AM 03/04/17 05:11 CBC WITH AUTO DIFF [HEME] AM COMPREHENSIVE METABOLIC PN,CMP [CHEM] AM 03/05/17 05:11 CBC WITH AUTO DIFF [HEME] AM COMPREHENSIVE METABOLIC PN,CMP [CHEM] AM - Plan Plan:: This 67 year old female admitted with community acquired pneumonia, dehydration , HECTOR, sepsis 1. Bacteremia, BC 3/4 gram positive cocci in clusters. Continue with Vancomycin WISAM pending. Sepsis resolved. Will repeat BC today. 2. Community acquired pneumonia: Continue Rocephin and Vancomycin. Sputum culture reveals gram positive cocci in clusters, chains and pairs. Duonebs and oxygen as needed. Does have more wheezing today will add Solumedrol 40 mg Q8 and monitor. 3. HECTOR: Improved BUN/Cr, will discontinue IVFs. Will recommend no further NSAID use. Monitor in am. Hold Diovan. 4. Diarrhea: WBCs positive. No Cdiff or campylobacter 5. HTN: Stable, will monitor. Continue Metoprolol. 6. Anemia: Hgb 8.6, after hydration. Hemoccult negative. No history of anemia. Appears to be iron deficiency possibly from chronic disease. Will monitor, start iron. Follow up with PCP. 7. Diabetes: A1C 6.5, Novolog SSI while in hospital. Spoke with PCP Dr Alonzo yesterday, he will follow up on BS. VTE: SCDs. Heparin. Dispo: 3-4 days pending improvement
[2017-03-02] MEDS: Iron Polysaccharides Complex 150 MG Cap PO SCH (10:00)
[2017-03-02] MEDS: methylPREDNISolone Sodium Succinate 40 MG/1 ML SDV IVPUSH SCH ×2 (10:00→16:15)
[2017-03-02] MEDS: Azithromycin 250 MG Tab PO SCH (16:06)
[2017-03-02] MEDS: Doxepin 25 MG Cap PO SCH (20:36)
[2017-03-02] MEDS: Benzonatate 100 MG Cap PO PRN (20:37)
[2017-03-02] MEDS: Rosuvastatin 10 MG Tab PO SCH (20:37)
[2017-03-02] MEDS: Venlafaxine 75 MG Cap.ER PO SCH (20:37)
[2017-03-02] MEDS: Metoprolol Succinate 50 MG Tab.ER PO SCH (20:38)
[2017-03-03] MEDS: methylPREDNISolone Sodium Succinate 40 MG/1 ML SDV IVPUSH SCH ×2 (01:20→08:51)
[2017-03-03] MEDS: Albuterol/Ipratropium 3.0-0.5 MG/3 ML Neb Soln NEB SCH ×7 (01:20→23:19)
[2017-03-03] MEDS: Benzonatate 100 MG Cap PO PRN ×3 (05:00→23:21)
[2017-03-03 05:58] LABS: CHLORIDE,CL 102 mmol/L (98-110); SODIUM,NA 136 mmol/L (136-146)
[2017-03-03] MEDS: Insulin Aspart 100 Units/ML 3 ML Pen SUBCUT SCH ×3 (07:48→16:07)
[2017-03-03] MEDS: Iron Polysaccharides Complex 150 MG Cap PO SCH (08:51)
[2017-03-03] MEDS: Aspirin 81 MG Tab.EC PO SCH (08:51)
[2017-03-03] MEDS: Heparin Sodium 5,000 Units/ML Vial SUBCUT SCH ×2 (08:51→20:37)
--- NOTE | 2017-03-03 11:05 | PCM.PN ---
- Review of Systems Systems Review Comment:: feels "100% better" - Patient Data Vitals - most recent: Last Vital Signs Temp 36.1 C 03/03/17 08:00 Pulse 82 03/03/17 08:00 Resp 16 03/03/17 08:00 BP 151/75 H 03/03/17 08:00 Pulse Ox 91 L 03/03/17 08:00 Weight - most recent: 113.353 kg I&O - last 24 hours: Intake & Output 03/02/17 03/03/17 03/03/17 22:59 06:59 14:59 Intake Total 840 950 Output Total 1974 1600 Balance -1134 -650 Lab Results last 24 hrs: Laboratory Results - last 24 hr 03/02/17 03/02/17 03/03/17 Range/Units 11:07 16:46 04:40 WBC 11.36 H (4.0-11.0) K/uL RBC 3.61 L (4.30-5.90) M/uL Hgb 9.4 L (12.0-16.0) g/dL Hct 29.8 L (36.0-46.0) % MCV 82.5 (80.0-98.0) fL MCH 26.0 L (27.0-32.0) pg MCHC 31.5 (31.0-37.0) g/dL RDW Std Deviation 47.7 (28.0-62.0) fl RDW Coeff of Jose 16 H (11.0-15.0) % Plt Count 461 H (150-400) K/uL MPV 9.40 (7.40-12.00) fL Neut % (Auto) 83.1 H (48.0-80.0) % Lymph % (Auto) 11.6 L (16.0-40.0) % [place] % (Auto) 5.1 (0.0-15.0) % Eos % (Auto) 0.0 (0.0-7.0) % Baso % (Auto) 0.2 (0.0-1.5) % Neut # (Auto) 9.4 H (1.4-5.7) K/uL Lymph # (Auto) 1.3 (0.6-2.4) K/uL [place] # (Auto) 0.6 (0.0-0.8) K/uL Eos # (Auto) 0.0 (0.0-0.7) K/uL Baso # (Auto) 0.0 (0.0-0.1) K/uL Nucleated RBC % 0.0 /100WBC Nucleated RBCs # 0 K/uL Sodium (136-146) mmol/L Potassium (3.5-5.1) mmol/L Chloride (98-110) mmol/L Carbon Dioxide (21-31) mmol/L BUN (6.0-23.0) mg/dL Creatinine (0.6-1.5) mg/dL Est Cr Clr Drug Dosing mL/min Estimated GFR (MDRD) ml/min Glucose (60-110) mg/dL POC Glucose 91 153 H (60-110) mg/dL Calcium (8.8-10.8) mg/dL Total Bilirubin (0.1-1.5) mg/dL AST (5-40) IU/L ALT (8-54) IU/L Alkaline Phosphatase (40-150) Total Protein (6.0-8.0) g/dL Albumin (3.4-4.8) g/dL Globulin (2.0-3.5) g/dL Albumin/Globulin Ratio (1.3-2.8) 03/03/17 03/03/17 Range/Units 04:40 06:02 WBC (4.0-11.0) K/uL RBC (4.30-5.90) M/uL Hgb (12.0-16.0) g/dL Hct (36.0-46.0) % MCV (80.0-98.0) fL MCH (27.0-32.0) pg MCHC (31.0-37.0) g/dL RDW Std Deviation (28.0-62.0) fl RDW Coeff of Jose (11.0-15.0) % Plt Count (150-400) K/uL MPV (7.40-12.00) fL Neut % (Auto) (48.0-80.0) % Lymph % (Auto) (16.0-40.0) % [place] % (Auto) (0.0-15.0) % Eos % (Auto) (0.0-7.0) % Baso % (Auto) (0.0-1.5) % Neut # (Auto) (1.4-5.7) K/uL Lymph # (Auto) (0.6-2.4) K/uL [place] # (Auto) (0.0-0.8) K/uL Eos # (Auto) (0.0-0.7) K/uL Baso # (Auto) (0.0-0.1) K/uL Nucleated RBC % /100WBC Nucleated RBCs # K/uL Sodium 136 (136-146) mmol/L Potassium 4.2 (3.5-5.1) mmol/L Chloride 102 (98-110) mmol/L Carbon Dioxide 23 (21-31) mmol/L BUN 21 (6.0-23.0) mg/dL Creatinine 0.9 (0.6-1.5) mg/dL Est Cr Clr Drug Dosing 57.56 mL/min Estimated GFR (MDRD) > 60.0 ml/min Glucose 122 H (60-110) mg/dL POC Glucose 133 H (60-110) mg/dL Calcium 9.6 (8.8-10.8) mg/dL Total Bilirubin 0.3 (0.1-1.5) mg/dL AST 16 (5-40) IU/L ALT 18 (8-54) IU/L Alkaline Phosphatase 139 (40-150) Total Protein 7.2 (6.0-8.0) g/dL Albumin 3.1 L (3.4-4.8) g/dL Globulin 4.1 H (2.0-3.5) g/dL Albumin/Globulin Ratio 0.8 L (1.3-2.8) Wisam Results last 24 hrs: Microbiology 03/01/17 17:40 Stool Culture - Final Stool / Feces NO SALMONELLA, SHIGELLA,OR E.COLI O157 ISOLATED Campylobacter Antigen Assay - Final NEGATIVE CAMPYLOBACTER AG - Final NEGATIVE FOR SHIGA TOXIN 1 - Final NEGATIVE FOR SHIGA TOXIN 2 02/28/17 15:22 Aerobic Blood Culture - Final Blood - Venous - Lab Draw Staphylococcus Aureus Anaerobic Blood Culture - Final 02/28/17 19:31 Gram Stain - Final Sputum - Expectorated Sputum Culture - Final Staphylococcus Aureus Normal Respiratory [place] Med Orders - Current: Current Medications Acetaminophen (Tylenol) 650 mg PO Q4H PRN PRN Reason: Pain Last Admin: 02/28/17 21:30 Dose: 650 mg Albuterol/Ipratropium (Duoneb 3.0-0.5 Mg/3 Ml) 3 ml NEB Q4HRRT [facility] Last Admin: 03/03/17 09:34 Dose: 3 ml Aspirin (Halfprin) 162 mg PO DAILY [facility] Last Admin: 03/03/17 08:51 Dose: 162 mg Azithromycin (Zithromax) 500 mg PO Q24H [facility] Last Admin: 03/02/17 16:06 Dose: 500 mg Benzonatate (Tessalon Perles) 100 mg PO TID PRN PRN Reason: Cough Last Admin: 03/03/17 05:00 Dose: 100 mg Calcium Carbonate/Glycine (Tums) 1,000 mg PO Q2HR PRN PRN Reason: Indigestion Last Admin: 03/01/17 16:19 Dose: 1,000 mg Doxepin HCl (Sinequan) 150 mg PO BEDTIME [facility] Last Admin: 03/02/17 20:36 Dose: 150 mg Heparin Sodium (Porcine) (Heparin Sodium) 5,000 units SUBCUT Q12HR [facility] Last Admin: 03/03/17 08:51 Dose: 5,000 units Oxacillin Sodium 2 gm/ Sodium (Chloride) 100 mls @ 1 drops/hr IV Q4H [facility] Insulin Aspart (Novolog) 0 unit SUBCUT TIDAC [facility] PRN Reason: Protocol Last Admin: 03/03/17 07:48 Dose: Not Given Methylprednisolone Sodium Succinate (Solu-Medrol) 40 mg IVPUSH DAILY [facility] Metoprolol Succinate (Toprol Xl) 50 mg PO BEDTIME [facility] Last Admin: 03/02/17 20:38 Dose: 50 mg Ondansetron HCl (Zofran) 4 mg IVPUSH Q4H PRN PRN Reason: Nausea Polysaccharide Iron Complex (Ferrex 150) 150 mg PO DAILY [facility] Last Admin: 03/03/17 08:51 Dose: 150 mg Rosuvastatin Calcium (Crestor) 10 mg PO BEDTIME [facility] Last Admin: 03/02/17 20:37 Dose: 10 mg Venlafaxine HCl (Effexor Xr) 75 mg PO BEDTIME [facility] Last Admin: 03/02/17 20:37 Dose: 75 mg Discontinued Medications Acetaminophen (Tylenol) 650 mg PO NOW ONE Stop: 02/28/17 14:13 Last Admin: 02/28/17 14:43 Dose: 650 mg Calcium Carbonate/Glycine (Tums) 1,000 mg PO ONETIME ONE Stop: 03/02/17 07:56 Last Admin: 03/02/17 08:27 Dose: 1,000 mg Heparin Sodium (Porcine) (Heparin Sodium) 5,000 units SUBCUT Q12HR [facility] Last Admin: 02/28/17 18:53 Dose: Not Given Azithromycin 500 mg/ Sodium (Chloride) 250 mls @ 250 mls/hr IV Q24H [facility] Last Admin: 02/28/17 18:52 Dose: Not Given Sodium Chloride (Normal Saline) 1,000 mls @ 500 mls/hr IV STAT ONE Stop: 02/28/17 15:59 Last Admin: 02/28/17 14:36 Dose: 500 mls/hr Ceftriaxone Sodium 1,000 mg/ (Sodium Chloride) 50 mls @ 200 mls/hr IV ONETIME ONE Stop: 02/28/17 14:16 Last Admin: 02/28/17 16:56 Dose: Not Given Ceftriaxone Sodium/Dextrose 1 (gm/ Premix) 50 mls @ 100 mls/hr IV ONETIME ONE Stop: 02/28/17 15:29 Last Admin: 02/28/17 14:53 Dose: 100 mls/hr Sodium Chloride (Normal Saline) 1,000 mls @ 150 mls/hr IV ASDIRECTED [facility] Last Admin: 02/28/17 18:51 Dose: 150 mls/hr Ceftriaxone Sodium/Dextrose 1 (gm/ Premix) 50 mls @ 100 mls/hr IV Q24H [facility] Last Admin: 03/01/17 15:00 Dose: 100 mls/hr Azithromycin 500 mg/ Sodium (Chloride) 250 mls @ 250 mls/hr IV ONETIME ONE Stop: 02/28/17 16:51 Last Admin: 02/28/17 16:45 Dose: 250 mls/hr Vancomycin HCl 1,750 mg/ (Sodium Chloride) 500 mls @ 333.333 mls/hr IV Q24H [facility] Last Admin: 03/03/17 08:52 Dose: 333.333 mls/hr Sodium Chloride (Normal Saline) 1,000 mls @ 150 mls/hr IV ASDIRECTED [facility] Last Admin: 03/02/17 08:40 Dose: 150 mls/hr Methylprednisolone Sodium Succinate (Solu-Medrol) 40 mg IVPUSH Q8H [facility] Last Admin: 03/03/17 08:51 Dose: 40 mg Potassium Chloride (Klor-Con M20) 40 meq PO ONETIME ONE Stop: 03/02/17 07:56 Last Admin: 03/02/17 08:25 Dose: 40 meq Rosuvastatin Calcium (Crestor) 10 mg PO DAILY [facility] Last Admin: 03/01/17 08:07 Dose: 10 mg Vancomycin HCl (Pharmacy To Dose - Vancomycin) 1 dose .XX ASDIRECTED [facility] Venlafaxine HCl (Effexor) 150 mg PO BID [facility] Last Admin: 03/01/17 08:12 Dose: 150 mg - Exam General: alert, oriented Lungs: Clear to auscultation, Normal respiratory effort Cardiovascular: Regular Rate, Regular Rhythm Abdomen: bowel sounds present, soft, no tenderness, no distension Extremities: no edema - Problem List Review Problem List Initiated/Reviewed/Updated: Yes - My Orders Last 24 Hours: My Active Orders 03/02/17 19:11 Benzonatate [Tessalon Perles] 100 mg PO TID PRN 03/02/17 21:00 Rosuvastatin [Crestor] 10 mg PO BEDTIME Venlafaxine [Effexor XR] 75 mg PO BEDTIME 03/03/17 11:00 Echo 2D wo Cont [US] Routine Oxacillin 2 gm Sodium Chloride 0.9% [Normal Saline] 100 ml IV Q4H 03/04/17 09:00 methylPREDNISolone Sod Succ [Solu-MEDROL] 40 mg IVPUSH DAILY - Plan Plan:: This 67 year old female admitted with community acquired pneumonia, found to have MSSA bacteremia 1. MSSA bacteremia: will switch to Oxacillin. Echocardiogram ordered. 2. REactive airway disease: wheezing improving will continue Solumedrol 3. HECTOR: Improved BUN/Cr, will discontinue IVFs. Will recommend no further NSAID use. Monitor in am. Hold Diovan. 4. Diarrhea: WBCs positive. No Cdiff or campylobacter 5. HTN: Stable, will monitor. Continue Metoprolol. 6. Anemia: Hgb 9.4, after hydration. Hemoccult negative. No history of anemia. Appears to be iron deficiency possibly from chronic disease. Will monitor, start iron. Follow up with PCP. 7. Diabetes: A1C 6.5, Novolog SSI while in hospital. VTE: SCDs. Heparin. Dispo: 3-4 days pending improvement
[2017-03-03] MEDS: Oxacillin 2 GM in Sodium Chloride 0.9% 100 ML IV SCH ×4 (11:34→23:20)
[2017-03-03] MEDS: Azithromycin 250 MG Tab PO SCH (16:03)
[2017-03-03] MEDS: Doxepin 25 MG Cap PO SCH (20:40)
[2017-03-03] MEDS: Venlafaxine 75 MG Cap.ER PO SCH (20:41)
[2017-03-03] MEDS: Rosuvastatin 10 MG Tab PO SCH (20:41)
[2017-03-03] MEDS: Metoprolol Succinate 50 MG Tab.ER PO SCH (20:42)
[2017-03-04] MEDS: Oxacillin 2 GM in Sodium Chloride 0.9% 100 ML IV SCH ×6 (03:46→23:24)
[2017-03-04] MEDS: Albuterol/Ipratropium 3.0-0.5 MG/3 ML Neb Soln NEB SCH ×7 (03:47→21:16)
[2017-03-04 06:23] LABS: CHLORIDE,CL 103 mmol/L (98-110); SODIUM,NA 136 mmol/L (136-146)
[2017-03-04] MEDS: Insulin Aspart 100 Units/ML 3 ML Pen SUBCUT SCH ×3 (07:28→18:58)
[2017-03-04] MEDS: Benzonatate 100 MG Cap PO PRN ×2 (08:06→15:03)
[2017-03-04] MEDS: Aspirin 81 MG Tab.EC PO SCH (08:06)
[2017-03-04] MEDS: Iron Polysaccharides Complex 150 MG Cap PO SCH (08:06)
[2017-03-04] MEDS: Heparin Sodium 5,000 Units/ML Vial SUBCUT SCH ×2 (08:07→20:26)
[2017-03-04] MEDS: methylPREDNISolone Sodium Succinate 40 MG/1 ML SDV IVPUSH SCH (08:07)
--- NOTE | 2017-03-04 11:24 | PCM.PN ---
- Review of Systems Systems Review Comment:: feeling better. - Patient Data Vitals - most recent: Last Vital Signs Temp 36.6 C 03/04/17 07:00 Pulse 79 03/04/17 07:00 Resp 16 03/04/17 07:00 BP 129/61 03/04/17 07:00 Pulse Ox 93 L 03/04/17 07:00 Weight - most recent: 113.353 kg I&O - last 24 hours: Intake & Output 03/03/17 03/04/17 03/04/17 22:59 06:59 14:59 Intake Total 930 1450 Output Total 800 700 Balance 130 750 Lab Results last 24 hrs: Laboratory Results - last 24 hr 03/03/17 03/03/17 03/04/17 Range/Units 11:29 16:06 05:37 WBC 12.27 H (4.0-11.0) K/uL RBC 3.24 L (4.30-5.90) M/uL Hgb 8.8 L (12.0-16.0) g/dL Hct 26.8 L (36.0-46.0) % MCV 82.7 (80.0-98.0) fL MCH 27.2 (27.0-32.0) pg MCHC 32.8 (31.0-37.0) g/dL RDW Std Deviation 47.6 (28.0-62.0) fl RDW Coeff of Jose 16 H (11.0-15.0) % Plt Count 314 (150-400) K/uL MPV 8.60 (7.40-12.00) fL Neut % (Auto) 74.0 (48.0-80.0) % Lymph % (Auto) 17.6 (16.0-40.0) % [place] % (Auto) 8.1 (0.0-15.0) % Eos % (Auto) 0.1 (0.0-7.0) % Baso % (Auto) 0.2 (0.0-1.5) % Neut # (Auto) 9.1 H (1.4-5.7) K/uL Lymph # (Auto) 2.2 (0.6-2.4) K/uL [place] # (Auto) 1.0 H (0.0-0.8) K/uL Eos # (Auto) 0.0 (0.0-0.7) K/uL Baso # (Auto) 0.0 (0.0-0.1) K/uL Nucleated RBC % 0.0 /100WBC Nucleated RBCs # 0 K/uL Sodium (136-146) mmol/L Potassium (3.5-5.1) mmol/L Chloride (98-110) mmol/L Carbon Dioxide (21-31) mmol/L BUN (6.0-23.0) mg/dL Creatinine (0.6-1.5) mg/dL Est Cr Clr Drug Dosing mL/min Estimated GFR (MDRD) ml/min Glucose (60-110) mg/dL POC Glucose 119 H 127 H (60-110) mg/dL Calcium (8.8-10.8) mg/dL Total Bilirubin (0.1-1.5) mg/dL AST (5-40) IU/L ALT (8-54) IU/L Alkaline Phosphatase (40-150) Total Protein (6.0-8.0) g/dL Albumin (3.4-4.8) g/dL Globulin (2.0-3.5) g/dL Albumin/Globulin Ratio (1.3-2.8) 03/04/17 03/04/17 Range/Units 05:37 06:59 WBC (4.0-11.0) K/uL RBC (4.30-5.90) M/uL Hgb (12.0-16.0) g/dL Hct (36.0-46.0) % MCV (80.0-98.0) fL MCH (27.0-32.0) pg MCHC (31.0-37.0) g/dL RDW Std Deviation (28.0-62.0) fl RDW Coeff of Jose (11.0-15.0) % Plt Count (150-400) K/uL MPV (7.40-12.00) fL Neut % (Auto) (48.0-80.0) % Lymph % (Auto) (16.0-40.0) % [place] % (Auto) (0.0-15.0) % Eos % (Auto) (0.0-7.0) % Baso % (Auto) (0.0-1.5) % Neut # (Auto) (1.4-5.7) K/uL Lymph # (Auto) (0.6-2.4) K/uL [place] # (Auto) (0.0-0.8) K/uL Eos # (Auto) (0.0-0.7) K/uL Baso # (Auto) (0.0-0.1) K/uL Nucleated RBC % /100WBC Nucleated RBCs # K/uL Sodium 136 (136-146) mmol/L Potassium 3.7 (3.5-5.1) mmol/L Chloride 103 (98-110) mmol/L Carbon Dioxide 24 (21-31) mmol/L BUN 17 (6.0-23.0) mg/dL Creatinine 0.8 (0.6-1.5) mg/dL Est Cr Clr Drug Dosing 64.76 mL/min Estimated GFR (MDRD) > 60.0 ml/min Glucose 110 (60-110) mg/dL POC Glucose 97 (60-110) mg/dL Calcium 8.9 (8.8-10.8) mg/dL Total Bilirubin 0.3 (0.1-1.5) mg/dL AST 34 (5-40) IU/L ALT 37 (8-54) IU/L Alkaline Phosphatase 72 (40-150) Total Protein 6.0 (6.0-8.0) g/dL Albumin 2.6 L (3.4-4.8) g/dL Globulin 3.4 (2.0-3.5) g/dL Albumin/Globulin Ratio 0.8 L (1.3-2.8) Wisam Results last 24 hrs: Microbiology 03/02/17 12:40 Aerobic Blood Culture - Preliminary Blood - Venous - Lab Draw NO GROWTH AFTER 1 DAY Anaerobic Blood Culture - Preliminary NO GROWTH AFTER 1 DAY 03/02/17 12:31 Aerobic Blood Culture - Preliminary Blood - Venous NO GROWTH AFTER 1 DAY Anaerobic Blood Culture - Preliminary NO GROWTH AFTER 1 DAY 03/01/17 17:40 Stool Culture - Final Stool / Feces NO SALMONELLA, SHIGELLA,OR E.COLI O157 ISOLATED Campylobacter Antigen Assay - Final NEGATIVE CAMPYLOBACTER AG - Final NEGATIVE FOR SHIGA TOXIN 1 - Final NEGATIVE FOR SHIGA TOXIN 2 02/28/17 15:22 Aerobic Blood Culture - Final Blood - Venous - Lab Draw Staphylococcus Aureus Anaerobic Blood Culture - Final Med Orders - Current: Current Medications Acetaminophen (Tylenol) 650 mg PO Q4H PRN PRN Reason: Pain Last Admin: 02/28/17 21:30 Dose: 650 mg Albuterol/Ipratropium (Duoneb 3.0-0.5 Mg/3 Ml) 3 ml NEB Q4HRRT [facility] Last Admin: 03/04/17 09:43 Dose: 3 ml Aspirin (Halfprin) 162 mg PO DAILY [facility] Last Admin: 03/04/17 08:06 Dose: 162 mg Azithromycin (Zithromax) 500 mg PO Q24H [facility] Last Admin: 03/03/17 16:03 Dose: 500 mg Benzonatate (Tessalon Perles) 100 mg PO TID PRN PRN Reason: Cough Last Admin: 03/04/17 08:06 Dose: 100 mg Calcium Carbonate/Glycine (Tums) 1,000 mg PO Q2HR PRN PRN Reason: Indigestion Last Admin: 03/01/17 16:19 Dose: 1,000 mg Doxepin HCl (Sinequan) 150 mg PO BEDTIME [facility] Last Admin: 03/03/17 20:40 Dose: 150 mg Heparin Sodium (Porcine) (Heparin Sodium) 5,000 units SUBCUT Q12HR [facility] Last Admin: 03/04/17 08:07 Dose: 5,000 units Oxacillin Sodium 2 gm/ Sodium (Chloride) 100 mls @ 200 mls/hr IV Q4H [facility] Last Admin: 03/04/17 10:58 Dose: 200 mls/hr Insulin Aspart (Novolog) 0 unit SUBCUT TIDAC [facility] PRN Reason: Protocol Last Admin: 03/04/17 07:28 Dose: Not Given Methylprednisolone Sodium Succinate (Solu-Medrol) 40 mg IVPUSH DAILY [facility] Last Admin: 03/04/17 08:07 Dose: 40 mg Metoprolol Succinate (Toprol Xl) 50 mg PO BEDTIME [facility] Last Admin: 03/03/17 20:42 Dose: 50 mg Ondansetron HCl (Zofran) 4 mg IVPUSH Q4H PRN PRN Reason: Nausea Polysaccharide Iron Complex (Ferrex 150) 150 mg PO DAILY [facility] Last Admin: 03/04/17 08:06 Dose: 150 mg Rosuvastatin Calcium (Crestor) 10 mg PO BEDTIME [facility] Last Admin: 03/03/17 20:41 Dose: 10 mg Venlafaxine HCl (Effexor Xr) 75 mg PO BEDTIME [facility] Last Admin: 03/03/17 20:41 Dose: 75 mg Discontinued Medications Acetaminophen (Tylenol) 650 mg PO NOW ONE Stop: 02/28/17 14:13 Last Admin: 02/28/17 14:43 Dose: 650 mg Calcium Carbonate/Glycine (Tums) 1,000 mg PO ONETIME ONE Stop: 03/02/17 07:56 Last Admin: 03/02/17 08:27 Dose: 1,000 mg Heparin Sodium (Porcine) (Heparin Sodium) 5,000 units SUBCUT Q12HR [facility] Last Admin: 02/28/17 18:53 Dose: Not Given Azithromycin 500 mg/ Sodium (Chloride) 250 mls @ 250 mls/hr IV Q24H [facility] Last Admin: 02/28/17 18:52 Dose: Not Given Sodium Chloride (Normal Saline) 1,000 mls @ 500 mls/hr IV STAT ONE Stop: 02/28/17 15:59 Last Admin: 02/28/17 14:36 Dose: 500 mls/hr Ceftriaxone Sodium 1,000 mg/ (Sodium Chloride) 50 mls @ 200 mls/hr IV ONETIME ONE Stop: 02/28/17 14:16 Last Admin: 02/28/17 16:56 Dose: Not Given Ceftriaxone Sodium/Dextrose 1 (gm/ Premix) 50 mls @ 100 mls/hr IV ONETIME ONE Stop: 02/28/17 15:29 Last Admin: 02/28/17 14:53 Dose: 100 mls/hr Sodium Chloride (Normal Saline) 1,000 mls @ 150 mls/hr IV ASDIRECTED [facility] Last Admin: 02/28/17 18:51 Dose: 150 mls/hr Ceftriaxone Sodium/Dextrose 1 (gm/ Premix) 50 mls @ 100 mls/hr IV Q24H [facility] Last Admin: 03/01/17 15:00 Dose: 100 mls/hr Azithromycin 500 mg/ Sodium (Chloride) 250 mls @ 250 mls/hr IV ONETIME ONE Stop: 02/28/17 16:51 Last Admin: 02/28/17 16:45 Dose: 250 mls/hr Vancomycin HCl 1,750 mg/ (Sodium Chloride) 500 mls @ 333.333 mls/hr IV Q24H [facility] Last Admin: 03/03/17 08:52 Dose: 333.333 mls/hr Sodium Chloride (Normal Saline) 1,000 mls @ 150 mls/hr IV ASDIRECTED [facility] Last Admin: 03/02/17 08:40 Dose: 150 mls/hr Methylprednisolone Sodium Succinate (Solu-Medrol) 40 mg IVPUSH Q8H [facility] Last Admin: 03/03/17 08:51 Dose: 40 mg Potassium Chloride (Klor-Con M20) 40 meq PO ONETIME ONE Stop: 03/02/17 07:56 Last Admin: 03/02/17 08:25 Dose: 40 meq Rosuvastatin Calcium (Crestor) 10 mg PO DAILY [facility] Last Admin: 03/01/17 08:07 Dose: 10 mg Vancomycin HCl (Pharmacy To Dose - Vancomycin) 1 dose .XX ASDIRECTED [facility] Venlafaxine HCl (Effexor) 150 mg PO BID [facility] Last Admin: 03/01/17 08:12 Dose: 150 mg - Exam General: alert, oriented Lungs: Clear to auscultation, Normal respiratory effort Cardiovascular: Regular Rate, Regular Rhythm Abdomen: bowel sounds present, soft, no tenderness, no distension Extremities: no edema - Problem List Review Problem List Initiated/Reviewed/Updated: Yes - My Orders Last 24 Hours: My Active Orders 03/03/17 11:30 Oxacillin 2 gm Sodium Chloride 0.9% [Normal Saline] 100 ml IV Q4H 03/04/17 Echo Comp wo Cont [US] Routine 03/04/17 09:00 methylPREDNISolone Sod Succ [Solu-MEDROL] 40 mg IVPUSH DAILY - Plan Plan:: This 67 year old female admitted with community acquired pneumonia, found to have MSSA bacteremia 1. MSSA bacteremia: on Oxacillin. Echocardiogram ordered. 2. REactive airway disease: wheezing improving will continue Solumedrol 3. HECTOR: Improved BUN/Cr, will discontinue IVFs. Will recommend no further NSAID use. Monitor in am. Hold Diovan. 4. HTN: Stable, will monitor. Continue Metoprolol. 5. Anemia: Hgb 8.8, after hydration. Hemoccult negative. No history of anemia. Appears to be iron deficiency possibly from chronic disease. Will monitor, start iron. Follow up with PCP. 6. Diabetes: A1C 6.5, Novolog SSI while in hospital. VTE: SCDs. Heparin. Dispo:anticipate discharge home when home IV antibiotics can be arranged.
[2017-03-04] MEDS: Azithromycin 250 MG Tab PO SCH (15:03)
[2017-03-04] MEDS: Doxepin 25 MG Cap PO SCH (20:31)
[2017-03-04] MEDS: Metoprolol Succinate 50 MG Tab.ER PO SCH (20:33)
[2017-03-04] MEDS: Rosuvastatin 10 MG Tab PO SCH (20:33)
[2017-03-04] MEDS: Venlafaxine 75 MG Cap.ER PO SCH (20:34)
[2017-03-05] MEDS: Albuterol/Ipratropium 3.0-0.5 MG/3 ML Neb Soln NEB SCH ×6 (01:35→21:30)
[2017-03-05] MEDS: Oxacillin 2 GM in Sodium Chloride 0.9% 100 ML IV SCH ×4 (03:11→15:17)
[2017-03-05] MEDS: Insulin Aspart 100 Units/ML 3 ML Pen SUBCUT SCH ×3 (06:40→16:31)
[2017-03-05 07:24] LABS: CHLORIDE,CL 103 mmol/L (98-110); SODIUM,NA 138 mmol/L (136-146)
[2017-03-05] MEDS: Iron Polysaccharides Complex 150 MG Cap PO SCH (08:44)
[2017-03-05] MEDS: Aspirin 81 MG Tab.EC PO SCH (08:44)
[2017-03-05] MEDS: Heparin Sodium 5,000 Units/ML Vial SUBCUT SCH ×2 (08:45→21:36)
--- NOTE | 2017-03-05 09:07 | PCM.PN ---
- General Info Date of Service: 03/05/17 Admission Dx/Problem (Free Text): Pneumonia Subjective Update: Feeling much better today. Cough has improved and fatigue is better as well. No chest pain or SOB. DId take self off oxygen and when checked it was noted to be 82% on RA. Functional Status: Reports: pain controlled, tolerating diet, ambulating, urinating - Review of Systems General: Reports: No Symptoms HEENT: Reports: no symptoms Pulmonary: Reports: shortness of breath (intermittently but much improved. ), cough. Denies: sputum Cardiovascular: Reports: No Symptoms. Denies: Chest Pain, Palpitations Gastrointestinal: Reports: No symptoms. Denies: Abdominal pain, Nausea, Vomiting Genitourinary: Reports: no symptoms. Denies: dysuria, frequency, burning Musculoskeletal: Reports: no symptoms Skin: Reports: no symptoms Neurological: Reports: No Symptoms Psychiatric: Reports: no symptoms - Patient Data Vitals - most recent: Last Vital Signs Temp 97.1 F 03/05/17 07:13 Pulse 78 03/05/17 07:13 Resp 18 03/05/17 07:13 BP 147/78 H 03/05/17 07:13 Pulse Ox 91 L 03/05/17 08:48 Weight - most recent: 113.353 kg I&O - last 24 hours: Intake & Output 03/04/17 03/05/17 03/05/17 22:59 06:59 14:59 Intake Total 1340 1310 100 Output Total 500 750 Balance 840 560 100 Lab Results last 24 hrs: Laboratory Results - last 24 hr 03/04/17 03/04/17 03/04/17 Range/Units 06:35 12:01 16:16 WBC (4.0-11.0) K/uL RBC (4.30-5.90) M/uL Hgb (12.0-16.0) g/dL Hct (36.0-46.0) % MCV (80.0-98.0) fL MCH (27.0-32.0) pg MCHC (31.0-37.0) g/dL RDW Std Deviation (28.0-62.0) fl RDW Coeff of Jose (11.0-15.0) % Plt Count (150-400) K/uL MPV (7.40-12.00) fL Add Manual Diff Neutrophils % (Manual) (48.0-80.0) % Band Neutrophils % % Lymphocytes % (Manual) (16.0-40.0) % Monocytes % (Manual) (0.0-15.0) % Eosinophils % (Manual) (0.0-7.0) % Nucleated RBC % /100WBC Absolute Seg Neuts Band Neutrophils # Lymphocytes # (Manual) Monocytes # (Manual) Eosinophils # (Manual) Nucleated RBCs # K/uL Sodium (136-146) mmol/L Potassium (3.5-5.1) mmol/L Chloride (98-110) mmol/L Carbon Dioxide (21-31) mmol/L BUN (6.0-23.0) mg/dL Creatinine (0.6-1.5) mg/dL Est Cr Clr Drug Dosing mL/min Estimated GFR (MDRD) ml/min Glucose (60-110) mg/dL POC Glucose 104 109 124 H (60-110) mg/dL Calcium (8.8-10.8) mg/dL Total Bilirubin (0.1-1.5) mg/dL AST (5-40) IU/L ALT (8-54) IU/L Alkaline Phosphatase (40-150) Total Protein (6.0-8.0) g/dL Albumin (3.4-4.8) g/dL Globulin (2.0-3.5) g/dL Albumin/Globulin Ratio (1.3-2.8) 03/05/17 03/05/17 03/05/17 Range/Units 06:17 06:17 06:26 WBC 11.89 H (4.0-11.0) K/uL RBC 3.63 L (4.30-5.90) M/uL Hgb 9.7 L (12.0-16.0) g/dL Hct 30.3 L (36.0-46.0) % MCV 83.5 (80.0-98.0) fL MCH 26.7 L (27.0-32.0) pg MCHC 32.0 (31.0-37.0) g/dL RDW Std Deviation 49.0 (28.0-62.0) fl RDW Coeff of Jose 16 H (11.0-15.0) % Plt Count 372 (150-400) K/uL MPV 9.10 (7.40-12.00) fL Add Manual Diff YES Neutrophils % (Manual) 69 (48.0-80.0) % Band Neutrophils % 3 % Lymphocytes % (Manual) 19 (16.0-40.0) % Monocytes % (Manual) 8 (0.0-15.0) % Eosinophils % (Manual) 1 (0.0-7.0) % Nucleated RBC % 0.7 /100WBC Absolute Seg Neuts 8.2 Band Neutrophils # 0.4 Lymphocytes # (Manual) 2.3 Monocytes # (Manual) 1.0 Eosinophils # (Manual) 0.1 Nucleated RBCs # 0 K/uL Sodium 138 (136-146) mmol/L Potassium 3.7 (3.5-5.1) mmol/L Chloride 103 (98-110) mmol/L Carbon Dioxide 24 (21-31) mmol/L BUN 14 (6.0-23.0) mg/dL Creatinine 0.9 (0.6-1.5) mg/dL Est Cr Clr Drug Dosing 57.56 mL/min Estimated GFR (MDRD) > 60.0 ml/min Glucose 92 (60-110) mg/dL POC Glucose 83 (60-110) mg/dL Calcium 8.6 L (8.8-10.8) mg/dL Total Bilirubin 0.3 (0.1-1.5) mg/dL AST 32 (5-40) IU/L ALT 47 (8-54) IU/L Alkaline Phosphatase 74 (40-150) Total Protein 6.2 (6.0-8.0) g/dL Albumin 2.7 L (3.4-4.8) g/dL Globulin 3.5 (2.0-3.5) g/dL Albumin/Globulin Ratio 0.8 L (1.3-2.8) Wisam Results last 24 hrs: Microbiology 03/02/17 12:40 Aerobic Blood Culture - Preliminary Blood - Venous - Lab Draw NO GROWTH AFTER 2 DAYS Anaerobic Blood Culture - Preliminary NO GROWTH AFTER 2 DAYS 03/02/17 12:31 Aerobic Blood Culture - Preliminary Blood - Venous NO GROWTH AFTER 2 DAYS Anaerobic Blood Culture - Preliminary NO GROWTH AFTER 2 DAYS Med Orders - Current: Current Medications Acetaminophen (Tylenol) 650 mg PO Q4H PRN PRN Reason: Pain Last Admin: 02/28/17 21:30 Dose: 650 mg Albuterol/Ipratropium (Duoneb 3.0-0.5 Mg/3 Ml) 3 ml NEB Q4HRRT [facility] Last Admin: 03/05/17 05:34 Dose: 3 ml Aspirin (Halfprin) 162 mg PO DAILY [facility] Last Admin: 03/05/17 08:44 Dose: 162 mg Azithromycin (Zithromax) 500 mg PO Q24H [facility] Last Admin: 03/04/17 15:03 Dose: 500 mg Benzonatate (Tessalon Perles) 100 mg PO TID PRN PRN Reason: Cough Last Admin: 03/04/17 15:03 Dose: 100 mg Calcium Carbonate/Glycine (Tums) 1,000 mg PO Q2HR PRN PRN Reason: Indigestion Last Admin: 03/01/17 16:19 Dose: 1,000 mg Doxepin HCl (Sinequan) 150 mg PO BEDTIME [facility] Last Admin: 03/04/17 20:31 Dose: 150 mg Heparin Sodium (Porcine) (Heparin Sodium) 5,000 units SUBCUT Q12HR [facility] Last Admin: 03/05/17 08:45 Dose: 5,000 units Oxacillin Sodium 2 gm/ Sodium (Chloride) 100 mls @ 200 mls/hr IV Q4H [facility] Last Admin: 03/05/17 06:53 Dose: 200 mls/hr Insulin Aspart (Novolog) 0 unit SUBCUT TIDAC [facility] PRN Reason: Protocol Last Admin: 03/05/17 06:40 Dose: Not Given Methylprednisolone Sodium Succinate (Solu-Medrol) 40 mg IVPUSH DAILY [facility] Last Admin: 03/04/17 08:07 Dose: 40 mg Metoprolol Succinate (Toprol Xl) 50 mg PO BEDTIME [facility] Last Admin: 03/04/17 20:33 Dose: 50 mg Ondansetron HCl (Zofran) 4 mg IVPUSH Q4H PRN PRN Reason: Nausea Polysaccharide Iron Complex (Ferrex 150) 150 mg PO DAILY [facility] Last Admin: 03/05/17 08:44 Dose: 150 mg Rosuvastatin Calcium (Crestor) 10 mg PO BEDTIME [facility] Last Admin: 03/04/17 20:33 Dose: 10 mg Venlafaxine HCl (Effexor Xr) 75 mg PO BEDTIME [facility] Last Admin: 03/04/17 20:34 Dose: 75 mg Discontinued Medications Acetaminophen (Tylenol) 650 mg PO NOW ONE Stop: 02/28/17 14:13 Last Admin: 02/28/17 14:43 Dose: 650 mg Calcium Carbonate/Glycine (Tums) 1,000 mg PO ONETIME ONE Stop: 03/02/17 07:56 Last Admin: 03/02/17 08:27 Dose: 1,000 mg Heparin Sodium (Porcine) (Heparin Sodium) 5,000 units SUBCUT Q12HR [facility] Last Admin: 02/28/17 18:53 Dose: Not Given Azithromycin 500 mg/ Sodium (Chloride) 250 mls @ 250 mls/hr IV Q24H [facility] Last Admin: 02/28/17 18:52 Dose: Not Given Sodium Chloride (Normal Saline) 1,000 mls @ 500 mls/hr IV STAT ONE Stop: 02/28/17 15:59 Last Admin: 02/28/17 14:36 Dose: 500 mls/hr Ceftriaxone Sodium 1,000 mg/ (Sodium Chloride) 50 mls @ 200 mls/hr IV ONETIME ONE Stop: 02/28/17 14:16 Last Admin: 02/28/17 16:56 Dose: Not Given Ceftriaxone Sodium/Dextrose 1 (gm/ Premix) 50 mls @ 100 mls/hr IV ONETIME ONE Stop: 02/28/17 15:29 Last Admin: 02/28/17 14:53 Dose: 100 mls/hr Sodium Chloride (Normal Saline) 1,000 mls @ 150 mls/hr IV ASDIRECTED [facility] Last Admin: 02/28/17 18:51 Dose: 150 mls/hr Ceftriaxone Sodium/Dextrose 1 (gm/ Premix) 50 mls @ 100 mls/hr IV Q24H [facility] Last Admin: 03/01/17 15:00 Dose: 100 mls/hr Azithromycin 500 mg/ Sodium (Chloride) 250 mls @ 250 mls/hr IV ONETIME ONE Stop: 02/28/17 16:51 Last Admin: 02/28/17 16:45 Dose: 250 mls/hr Vancomycin HCl 1,750 mg/ (Sodium Chloride) 500 mls @ 333.333 mls/hr IV Q24H [facility] Last Admin: 03/03/17 08:52 Dose: 333.333 mls/hr Sodium Chloride (Normal Saline) 1,000 mls @ 150 mls/hr IV ASDIRECTED [facility] Last Admin: 03/02/17 08:40 Dose: 150 mls/hr Methylprednisolone Sodium Succinate (Solu-Medrol) 40 mg IVPUSH Q8H [facility] Last Admin: 03/03/17 08:51 Dose: 40 mg Potassium Chloride (Klor-Con M20) 40 meq PO ONETIME ONE Stop: 03/02/17 07:56 Last Admin: 03/02/17 08:25 Dose: 40 meq Rosuvastatin Calcium (Crestor) 10 mg PO DAILY [facility] Last Admin: 03/01/17 08:07 Dose: 10 mg Vancomycin HCl (Pharmacy To Dose - Vancomycin) 1 dose .XX ASDIRECTED [facility] Venlafaxine HCl (Effexor) 150 mg PO BID [facility] Last Admin: 03/01/17 08:12 Dose: 150 mg - Exam Quality Assessment: supplemental oxygen, DVT prophylaxis (SCDs) General: alert, oriented, cooperative Lungs: Normal respiratory effort, Wheezing (faint wheezing) Cardiovascular: Regular Rate, Regular Rhythm, No Murmurs Abdomen: bowel sounds present, soft, no tenderness, no distension Extremities: no edema, normal pulses, no tenderness/swelling Skin: warm, dry, intact Neurological: no new focal deficit Psy/Mental Status: alert, normal affect, normal mood - Problem List & Annotations (1) Sepsis SNOMED Code(s): 11010698 Code(s): A41.9 - SEPSIS, UNSPECIFIED ORGANISM Status: Resolved Current Visit: Yes (2) Pneumonia SNOMED Code(s): 948803040 Code(s): J18.9 - PNEUMONIA, UNSPECIFIED ORGANISM Status: Acute Current Visit: Yes Qualifiers: Pneumonia type: due to unspecified organism Laterality: bilateral Lung location: lower lobe of lung Qualified Code(s): J18.9 - Pneumonia, unspecified organism (3) HECTOR (acute kidney injury) SNOMED Code(s): 59640641 Code(s): N17.9 - ACUTE KIDNEY FAILURE, UNSPECIFIED Status: Acute Current Visit: Yes (4) Dehydration SNOMED Code(s): 58236871 Code(s): E86.0 - DEHYDRATION Status: Acute Current Visit: Yes (5) Diarrhea SNOMED Code(s): 79426017 Code(s): R19.7 - DIARRHEA, UNSPECIFIED Status: Chronic Current Visit: Yes Qualifiers: Diarrhea type: unspecified type Qualified Code(s): R19.7 - Diarrhea, unspecified (6) Hypoxia SNOMED Code(s): 760596371, 841831418 Code(s): R09.02 - HYPOXEMIA Status: Acute Current Visit: Yes (7) HTN (hypertension) SNOMED Code(s): 01868515 Code(s): I10 - ESSENTIAL (PRIMARY) HYPERTENSION Status: Chronic Current Visit: Yes Qualifiers: Hypertension type: essential hypertension Qualified Code(s): I10 - Essential (primary) hypertension (8) Depression SNOMED Code(s): 84668172 Code(s): F32.9 - MAJOR DEPRESSIVE DISORDER, SINGLE EPISODE, UNSPECIFIED Status: Chronic Current Visit: Yes Qualifiers: Depression Type: unspecified Qualified Code(s): F32.9 - Major depressive disorder, single episode, unspecified (9) Anemia SNOMED Code(s): 508837843 Code(s): D64.9 - ANEMIA, UNSPECIFIED Status: Acute Current Visit: Yes Qualifiers: Anemia type: iron deficiency Iron deficiency anemia type: other iron deficiency Qualified Code(s): D50.8 - Other iron deficiency anemias (10) CAP (community acquired pneumonia) due to MSSA (methicillin sensitive Staphylococcus aureus) SNOMED Code(s): 356781586, 601820497088674 Code(s): J15.211 - PNEUMONIA DUE TO METHICILLIN SUSCEP STAPH Status: Acute Current Visit: Yes - Problem List Review Problem List Initiated/Reviewed/Updated: Yes - Plan Plan:: This 67 year old female admitted with community acquired pneumonia, found to have MSSA bacteremia 1. MSSA bacteremia: on Oxacillin. Echocardiogram pending. Will arrange for PICC line placement and outpatient antibiotics. 2. Reactive airway disease: wheezing improving will continue Solumedrol. Still needing Oxygen, RA challenge revealed continue hypoxia. RA challenge later this am, results in 91% on RA. Will monitor. 3. HECTOR: Resolved. Will recommend no further NSAID use. Monitor in am. Hold Diovan. 4. HTN: Stable, will monitor. Continue Metoprolol. 5. Anemia: Hgb 9.7. Hemoccult negative. No history of anemia. Appears to be iron deficiency possibly from chronic disease. Continue iron. Follow up with PCP. 6. Diabetes: A1C 6.5, Novolog SSI while in hospital. Dm educator consulted. VTE: SCDs. Heparin. Dispo:anticipate discharge home when home IV antibiotics can be arranged.
[2017-03-05] MEDS: methylPREDNISolone Sodium Succinate 40 MG/1 ML SDV IVPUSH SCH (09:40)
[2017-03-05] MEDS: ceFAZolin 2 GM in Premix Bag 1 BAG IV SCH (17:22)
[2017-03-05] MEDS: Venlafaxine 75 MG Cap.ER PO SCH (21:35)
[2017-03-05] MEDS: Metoprolol Succinate 50 MG Tab.ER PO SCH (21:35)
[2017-03-05] MEDS: Doxepin 25 MG Cap PO SCH (21:35)
[2017-03-05] MEDS: Rosuvastatin 10 MG Tab PO SCH (21:36)
[2017-03-06] MEDS: ceFAZolin 2 GM in Premix Bag 1 BAG IV SCH ×3 (02:13→19:39)
[2017-03-06] MEDS: Albuterol/Ipratropium 3.0-0.5 MG/3 ML Neb Soln NEB SCH ×5 (02:13→19:39)
[2017-03-06 05:26] LABS: CHLORIDE,CL 103 mmol/L (98-110); SODIUM,NA 137 mmol/L (136-146)
[2017-03-06] MEDS: Insulin Aspart 100 Units/ML 3 ML Pen SUBCUT SCH ×3 (07:04→19:39)
[2017-03-06] MEDS: Aspirin 81 MG Tab.EC PO SCH (09:00)
[2017-03-06] MEDS: Iron Polysaccharides Complex 150 MG Cap PO SCH (09:00)
[2017-03-06] MEDS: Heparin Sodium 5,000 Units/ML Vial SUBCUT SCH (09:04)
[2017-03-06] MEDS: methylPREDNISolone Sodium Succinate 40 MG/1 ML SDV IVPUSH SCH (09:05)
[2017-03-06 11:39] VITALS: BP 134/60
--- NOTE | 2017-03-06 13:57 | PCM.DCSUM1 ---
Discharge Summary - Hospital Course Brief History: This 67 year old female with pmh of HTN, dyslipidemia and a smoker presented to the ED 02/28/2017 via EMS with complaints of cold, body aches and generalized weakness. She reports she started getting a cold approximately 5 days ago and it has worsened. She is not eating or drinking, she has a productive cough with SOB, no abdominal pain, but is having diarrhea with incontinent episodes. She has not been on antibiotics recently nor has she been hospitalized. She denies having influenza vaccine or a pneumonia vaccine. She has not had any sick contacts. She denies any chest pain or palpitations, no urinary symptoms, no neck stiffness or pain. In the ED leukocytosis noted, 15,140, hgb 10.7 Platelets 418. Na 130, K+ 3.4 Cl 85, BUN 76, Cr 1.6, and glucose 156. Influenza swab negative. She was noted to be tachycardic with hypoxia. She was placed on 4 L sating mid 90s. BC obtained. Lactate 0.9. CXR showed bibasilar but prominently L basilar infiltrate. She will be admitted with sepsis, pneumonia, hypoxia and acute kidney injury. PCP, Dr Alonzo - Discharge Data Discharge Date: 03/06/17 Discharge Disposition: Home, Self-Care 01 Condition: Good - Discharge Diagnosis/Problem(s) (1) Sepsis SNOMED Code(s): 63066997 ICD Code: A41.9 - SEPSIS, UNSPECIFIED ORGANISM Status: Resolved Current Visit: Yes (2) Pneumonia SNOMED Code(s): 640276546 ICD Code: J18.9 - PNEUMONIA, UNSPECIFIED ORGANISM Status: Acute Current Visit: Yes Qualifiers: Pneumonia type: due to unspecified organism Laterality: bilateral Lung location: lower lobe of lung Qualified Code(s): J18.9 - Pneumonia, unspecified organism (3) HECTOR (acute kidney injury) SNOMED Code(s): 86179982 ICD Code: N17.9 - ACUTE KIDNEY FAILURE, UNSPECIFIED Status: Acute Current Visit: Yes (4) Dehydration SNOMED Code(s): 91265876 ICD Code: E86.0 - DEHYDRATION Status: Acute Current Visit: Yes (5) Diarrhea SNOMED Code(s): 61034378 ICD Code: R19.7 - DIARRHEA, UNSPECIFIED Status: Chronic Current Visit: Yes Qualifiers: Diarrhea type: unspecified type Qualified Code(s): R19.7 - Diarrhea, unspecified (6) Hypoxia SNOMED Code(s): 879014914, 872906158 ICD Code: R09.02 - HYPOXEMIA Status: Acute Current Visit: Yes (7) HTN (hypertension) SNOMED Code(s): 79882430 ICD Code: I10 - ESSENTIAL (PRIMARY) HYPERTENSION Status: Chronic Current Visit: Yes Qualifiers: Hypertension type: essential hypertension Qualified Code(s): I10 - Essential (primary) hypertension (8) Depression SNOMED Code(s): 33437379 ICD Code: F32.9 - MAJOR DEPRESSIVE DISORDER, SINGLE EPISODE, UNSPECIFIED Status: Chronic Current Visit: Yes Qualifiers: Depression Type: unspecified Qualified Code(s): F32.9 - Major depressive disorder, single episode, unspecified (9) Anemia SNOMED Code(s): 740576877 ICD Code: D64.9 - ANEMIA, UNSPECIFIED Status: Acute Current Visit: Yes Qualifiers: Anemia type: iron deficiency Iron deficiency anemia type: other iron deficiency Qualified Code(s): D50.8 - Other iron deficiency anemias (10) CAP (community acquired pneumonia) due to MSSA (methicillin sensitive Staphylococcus aureus) SNOMED Code(s): 879680076, 107537982818593 ICD Code: J15.211 - PNEUMONIA DUE TO METHICILLIN SUSCEP STAPH Status: Acute Current Visit: Yes - Patient Summary/Data Consults: Consultations 03/02/17 09:30 Consult to DM [Consult to Diabetic Nurse Specialist] [CONS] Routine - Patient Instructions Diet: Diabetic Diet Activity: As Tolerated Showering/Bathing: May Shower Notify Provider of: Fever, Increased Pain, Swelling and Redness, Drainage, Nausea and/or Vomiting - Discharge Plan Prescriptions/Med Rec: Albuterol [IJD: Albuterol HFA] 1 puff INH Q4H #1 inhaler Benzonatate [Tessalon Perles] 100 mg PO TID PRN #30 cap PRN Reason: Cough Iron Polysaccharides Complex [Ferrex 150] 150 mg PO DAILY #30 cap Prednisone [IMW: predniSONE] 40 mg PO WITHBREAKFAST #30 tab ceFAZolin [Ancef] 2 gm IV Q8H #31 bag Home Medications: Home Meds Rosuvastatin [Crestor] 10 mg PO BEDTIME 12/15/14 [History] Aspirin [Adult Low Dose Aspirin EC] 162 mg PO DAILY 03/01/17 [History] Doxepin [SINEquan] 150 mg PO BEDTIME 03/01/17 [History] Metoprolol Succinate [Toprol XL] 50 mg PO BEDTIME 03/01/17 [History] Valsartan/Hydrochlorothiazide [Valsartan-Hctz 80-12.5 mg Tab] 1 tab PO DAILY 05/12 [History] Venlafaxine [Effexor XR] 75 mg PO BEDTIME 03/01/17 [History] Acetaminophen [Tylenol] 650 mg PO Q4H PRN #0 tablet 03/06/17 [Rx] Albuterol [IJD: Albuterol HFA] 1 puff INH Q4H #1 inhaler 03/06/17 [Rx] Benzonatate [Tessalon Perles] 100 mg PO TID PRN #30 cap 03/06/17 [Rx] Iron Polysaccharides Complex [Ferrex 150] 150 mg PO DAILY #30 cap 03/06/17 [Rx] Prednisone [IMW: predniSONE] 40 mg PO WITHBREAKFAST #30 tab 03/06/17 [Rx] ceFAZolin [Ancef] 2 gm IV Q8H #31 bag 03/06/17 [Rx] Patient Handouts: Cefazolin injection, Albuterol inhalation aerosol, Polysaccharide-Iron Complex tablets or capsules, Prednisone tablets, Benzonatate capsules Referrals: [facility] [Outside] Glen Alonzo MD [Physician] - 03/14/17 12:30 pm - Discharge Summary/Plan Comment DC Time >30 min.: No Discharge Summary/Plan Comment: Discharge Diagnoses: MSSA bacteremia MSSA pneumonia Reasctive airway disease HECTOR-resolved Dehydration-resolved DM type 2- A1c 6.5 Anemia of chronic disease HTN Depression Tiffanie was admitted and initially treated with Azithromycin and Rocephin for community acquired pneumonia. WBC remained elevated and sputum cultures returned with gram + cocci, she was placed on Vancomycin as well. BC soon returned with gram +cocci in clusters as well. After starting Vancomycin leukocytosis normalized. She was noted to have some reactive airway disease, likely secondary to history smoking and pneumonia. She was start on Solumedrol. She was weaned from oxygen and tolerated RA well. BC returned with MSSA. BC were redrawn 2 days after Vancomycin was started and have since been clear with no growth. She is no longer febrile and is feeling better. PICC line to be placed today prior to discharge, she will be discharged on a total of 14 day course of Cefazolin 2 g Q8hr for MSSA bacteremia. She has tolerated dosing here and is doing well. She will follow up with PCP regarding further treatment and removal of PICC line if no further treatment is needed. I will also send her home a prednisone taper for reactive airway and albuterol inhaler. During admission it was noted she had anemia, iron studies and hemoccult were obtained. Hemoccult was negative, iron studies show iron deficiency anemia likely from chronic disease. Iron supplementation started. No need for transfusion. Also during her stay BS were elevated, and A1c noted to be 6.5 I will not start her on medication at this time. DM educator did speak with her, will trial dietary changes and defer to PCP if starting Metformin would be beneficial if diet changes are not made with significant decrease. Follow up appointments have been made with PCP, Dr Alonzo. He is aware of current treatment plan and discharge diagnoses. Encouraged not to take any further NSAIDs due to HECTOR likely secondary to dehydration and NSAID administration prior to being hospitalized. - General Info Date of Service: 03/06/17 Admission Dx/Problem (Free Text: Pneumonia Subjective Update: Feeling much better today. Denies chest pain or SOB. She is ok with going home today after PICC line, a little apprehensive, but knowing she wont need to do anything with PICC she is calmed. Functional Status: Reports: pain controlled, tolerating diet, ambulating, urinating - Review of Systems General: Reports: No Symptoms. Denies: Fever, Malaise HEENT: Reports: no symptoms. Denies: sinus congestion, sore throat Pulmonary: Reports: cough. Denies: shortness of breath, sputum Cardiovascular: Reports: No Symptoms. Denies: Chest Pain, Orthopnea, Edema Gastrointestinal: Reports: No symptoms. Denies: Abdominal pain, Nausea, Vomiting Genitourinary: Reports: no symptoms. Denies: dysuria, frequency, burning Musculoskeletal: Reports: no symptoms Skin: Reports: no symptoms Neurological: Reports: No Symptoms Psychiatric: Reports: no symptoms - Patient Data Vitals - Most Recent: Last Vital Signs Temp 98.2 F 03/06/17 11:37 Pulse 106 H 03/06/17 07:53 Resp 16 03/06/17 11:37 BP 134/60 03/06/17 11:37 Pulse Ox 90 L 03/06/17 11:37 Weight - Most Recent: 113.353 kg I&O - Last 24 hours: Intake & Output 03/05/17 03/06/17 03/06/17 22:59 06:59 14:59 Intake Total 150 850 50 Output Total 750 Balance 150 100 50 Lab Results - Last 24 hrs: Laboratory Results - last 24 hr 03/05/17 03/06/17 03/06/17 Range/Units 16:20 04:17 04:17 WBC 12.93 H (4.0-11.0) K/uL RBC 3.22 L (4.30-5.90) M/uL Hgb 8.7 L (12.0-16.0) g/dL Hct 27.1 L (36.0-46.0) % MCV 84.2 (80.0-98.0) fL MCH 27.0 (27.0-32.0) pg MCHC 32.1 (31.0-37.0) g/dL RDW Std Deviation 49.0 (28.0-62.0) fl RDW Coeff of Jose 16 H (11.0-15.0) % Plt Count 361 (150-400) K/uL MPV 9.10 (7.40-12.00) fL Add Manual Diff YES Neutrophils % (Manual) 57 (48.0-80.0) % Lymphocytes % (Manual) 37 (16.0-40.0) % Monocytes % (Manual) 5 (0.0-15.0) % Eosinophils % (Manual) 1 (0.0-7.0) % Nucleated RBC % 0.5 /100WBC Absolute Seg Neuts 7.4 Lymphocytes # (Manual) 4.8 Monocytes # (Manual) 0.6 Eosinophils # (Manual) 0.1 Nucleated RBCs # 0 K/uL Sodium 137 (136-146) mmol/L Potassium 3.7 (3.5-5.1) mmol/L Chloride 103 (98-110) mmol/L Carbon Dioxide 24 (21-31) mmol/L BUN 11 (6.0-23.0) mg/dL Creatinine 0.9 (0.6-1.5) mg/dL Est Cr Clr Drug Dosing 57.56 mL/min Estimated GFR (MDRD) > 60.0 ml/min Glucose 97 (60-110) mg/dL POC Glucose 118 H (60-110) mg/dL Calcium 8.0 L (8.8-10.8) mg/dL 03/06/17 03/06/17 03/06/17 Range/Units 05:45 07:48 11:18 WBC (4.0-11.0) K/uL RBC (4.30-5.90) M/uL Hgb (12.0-16.0) g/dL Hct (36.0-46.0) % MCV (80.0-98.0) fL MCH (27.0-32.0) pg MCHC (31.0-37.0) g/dL RDW Std Deviation (28.0-62.0) fl RDW Coeff of Jose (11.0-15.0) % Plt Count (150-400) K/uL MPV (7.40-12.00) fL Add Manual Diff Neutrophils % (Manual) (48.0-80.0) % Lymphocytes % (Manual) (16.0-40.0) % Monocytes % (Manual) (0.0-15.0) % Eosinophils % (Manual) (0.0-7.0) % Nucleated RBC % /100WBC Absolute Seg Neuts Lymphocytes # (Manual) Monocytes # (Manual) Eosinophils # (Manual) Nucleated RBCs # K/uL Sodium (136-146) mmol/L Potassium (3.5-5.1) mmol/L Chloride (98-110) mmol/L Carbon Dioxide (21-31) mmol/L BUN (6.0-23.0) mg/dL Creatinine (0.6-1.5) mg/dL Est Cr Clr Drug Dosing mL/min Estimated GFR (MDRD) ml/min Glucose (60-110) mg/dL POC Glucose 91 103 101 (60-110) mg/dL Calcium (8.8-10.8) mg/dL KERIWN Results - Last 24 hrs: Microbiology 03/02/17 12:40 Aerobic Blood Culture - Preliminary Blood - Venous - Lab Draw NO GROWTH AFTER 4 DAYS Anaerobic Blood Culture - Preliminary NO GROWTH AFTER 3 DAYS 03/02/17 12:31 Aerobic Blood Culture - Preliminary Blood - Venous NO GROWTH AFTER 4 DAYS Anaerobic Blood Culture - Preliminary NO GROWTH AFTER 4 DAYS Med Orders - Current: Current Medications Acetaminophen (Tylenol) 650 mg PO Q4H PRN PRN Reason: Pain Last Admin: 02/28/17 21:30 Dose: 650 mg Albuterol/Ipratropium (Duoneb 3.0-0.5 Mg/3 Ml) 3 ml NEB Q4HRRT [facility] Last Admin: 03/06/17 13:26 Dose: Not Given Aspirin (Halfprin) 162 mg PO DAILY [facility] Last Admin: 03/06/17 09:00 Dose: 162 mg Benzonatate (Tessalon Perles) 100 mg PO TID PRN PRN Reason: Cough Last Admin: 03/04/17 15:03 Dose: 100 mg Calcium Carbonate/Glycine (Tums) 1,000 mg PO Q2HR PRN PRN Reason: Indigestion Last Admin: 03/01/17 16:19 Dose: 1,000 mg Doxepin HCl (Sinequan) 150 mg PO BEDTIME [facility] Last Admin: 03/05/17 21:35 Dose: 150 mg Heparin Sodium (Porcine) (Heparin Sodium) 5,000 units SUBCUT Q12HR [facility] Last Admin: 03/06/17 09:04 Dose: 5,000 units Cefazolin Sodium/Dextrose 2 gm (/ Premix) 50 mls @ 100 mls/hr IV Q8H [facility] Last Admin: 03/06/17 10:03 Dose: 100 mls/hr Insulin Aspart (Novolog) 0 unit SUBCUT TIDAC LIZA PRN Reason: Protocol Last Admin: 03/06/17 12:46 Dose: Not Given Metoprolol Succinate (Toprol Xl) 50 mg PO BEDTIME [facility] Last Admin: 03/05/17 21:35 Dose: 50 mg Ondansetron HCl (Zofran) 4 mg IVPUSH Q4H PRN PRN Reason: Nausea Polysaccharide Iron Complex (Ferrex 150) 150 mg PO DAILY [facility] Last Admin: 03/06/17 09:00 Dose: 150 mg Rosuvastatin Calcium (Crestor) 10 mg PO BEDTIME [facility] Last Admin: 03/05/17 21:36 Dose: 10 mg Venlafaxine HCl (Effexor Xr) 75 mg PO BEDTIME [facility] Last Admin: 03/05/17 21:35 Dose: 75 mg Discontinued Medications Acetaminophen (Tylenol) 650 mg PO NOW ONE Stop: 02/28/17 14:13 Last Admin: 02/28/17 14:43 Dose: 650 mg Azithromycin (Zithromax) 500 mg PO Q24H [facility] Last Admin: 03/04/17 15:03 Dose: 500 mg Calcium Carbonate/Glycine (Tums) 1,000 mg PO ONETIME ONE Stop: 03/02/17 07:56 Last Admin: 03/02/17 08:27 Dose: 1,000 mg Heparin Sodium (Porcine) (Heparin Sodium) 5,000 units SUBCUT Q12HR [facility] Last Admin: 02/28/17 18:53 Dose: Not Given Azithromycin 500 mg/ Sodium (Chloride) 250 mls @ 250 mls/hr IV Q24H [facility] Last Admin: 02/28/17 18:52 Dose: Not Given Sodium Chloride (Normal Saline) 1,000 mls @ 500 mls/hr IV STAT ONE Stop: 02/28/17 15:59 Last Admin: 02/28/17 14:36 Dose: 500 mls/hr Ceftriaxone Sodium 1,000 mg/ (Sodium Chloride) 50 mls @ 200 mls/hr IV ONETIME ONE Stop: 02/28/17 14:16 Last Admin: 02/28/17 16:56 Dose: Not Given Ceftriaxone Sodium/Dextrose 1 (gm/ Premix) 50 mls @ 100 mls/hr IV ONETIME ONE Stop: 02/28/17 15:29 Last Admin: 02/28/17 14:53 Dose: 100 mls/hr Sodium Chloride (Normal Saline) 1,000 mls @ 150 mls/hr IV ASDIRECTED [facility] Last Admin: 02/28/17 18:51 Dose: 150 mls/hr Ceftriaxone Sodium/Dextrose 1 (gm/ Premix) 50 mls @ 100 mls/hr IV Q24H [facility] Last Admin: 03/01/17 15:00 Dose: 100 mls/hr Azithromycin 500 mg/ Sodium (Chloride) 250 mls @ 250 mls/hr IV ONETIME ONE Stop: 02/28/17 16:51 Last Admin: 02/28/17 16:45 Dose: 250 mls/hr Vancomycin HCl 1,750 mg/ (Sodium Chloride) 500 mls @ 333.333 mls/hr IV Q24H [facility] Last Admin: 03/03/17 08:52 Dose: 333.333 mls/hr Sodium Chloride (Normal Saline) 1,000 mls @ 150 mls/hr IV ASDIRECTED [facility] Last Admin: 03/02/17 08:40 Dose: 150 mls/hr Oxacillin Sodium 2 gm/ Sodium (Chloride) 100 mls @ 200 mls/hr IV Q4H [facility] Stop: 03/05/17 15:31 Last Admin: 03/05/17 15:17 Dose: 200 mls/hr Methylprednisolone Sodium Succinate (Solu-Medrol) 40 mg IVPUSH Q8H [facility] Last Admin: 03/03/17 08:51 Dose: 40 mg Methylprednisolone Sodium Succinate (Solu-Medrol) 40 mg IVPUSH DAILY [facility] Last Admin: 03/06/17 09:05 Dose: 40 mg Potassium Chloride (Klor-Con M20) 40 meq PO ONETIME ONE Stop: 03/02/17 07:56 Last Admin: 03/02/17 08:25 Dose: 40 meq Rosuvastatin Calcium (Crestor) 10 mg PO DAILY [facility] Last Admin: 03/01/17 08:07 Dose: 10 mg Vancomycin HCl (Pharmacy To Dose - Vancomycin) 1 dose .XX ASDIRECTED [facility] Venlafaxine HCl (Effexor) 150 mg PO BID [facility] Last Admin: 03/01/17 08:12 Dose: 150 mg - Exam Quality Assessment: Reports: DVT prophylaxis. Denies: supplemental oxygen General: Reports: alert, oriented, cooperative Lungs: Reports: Clear to auscultation, Normal respiratory effort Cardiovascular: Reports: Regular Rate, Regular Rhythm Abdomen: Reports: bowel sounds present, soft, no tenderness, no distension Skin: Reports: warm, dry, intact Neurological: Reports: no new focal deficit Psy/Mental Status: Reports: alert, normal affect, normal mood *Q Meaningful Use (DIS) - VTE *Q VTE Criteria *Q: - Stroke *Q Stroke Criteria *Q: - AMI *Q AMI Criteria *Q:
[2017-03-06] MEDS ORDERED: ceFAZolin 2 GM in Premix Bag 1 BAG IV ONE (15:45)
--- NOTE | 2017-03-06 16:15 | CR ---
EXAMINATION: Fluoro and ultrasound guided left-sided PICC line placement. HISTORY: Long-term antibiotics. TECHNIQUE/FINDINGS: After written informed consent was obtained from the patient using ultrasound a nd Fluoro guidance under aseptic conditions utilizing 1% lidocaine as local anesthesia left cephalic vein was accessed and 5 [place] PICC catheter was deployed with its tip in the distal superior vena cava. The catheter flushes and withdraws blood well. The catheter is flushed with the diluted hepar in. The catheter secured well. IMPRESSION: Successful Fluoro and ultrasound guided PICC line placement.
--- NOTE | 2017-03-08 13:33 | ECHO ---
EXAM DATE: 02/28/17 The echocardiogram report can be seen in this patient's EMR (Electronic Medical Record) in the Reports section. ANA LAURA
== END 2017-03-06 17:00 | disposition home or self-care (01) | DRG 871 ==
LOC: MW.ED 12:13 → MW.MS 15:10
PROVIDERS: ADMIT Internal Medicine; ATTEND Internal Medicine
PROC: 02HV33Z Insertion of Infusion Device into Superior Vena Cava, Percutaneous Approach (ICD-10-PCS; principal; 2017-03-06)
DX: J18.9 Pneumonia, unspecified organism (principal); A41.9 Sepsis, unspecified organism; F32.9 Major depressive disorder, single episode, unspecified; J15.211 Pneumonia due to Methicillin susceptible Staphylococcus aureus; N17.9 Acute kidney failure, unspecified; E86.0 Dehydration; R19.7 Diarrhea, unspecified; R09.02 Hypoxemia; I10 Essential (primary) hypertension; D50.8 Other iron deficiency anemias; J98.9 Respiratory disorder, unspecified; E11.9 Type 2 diabetes mellitus without complications; E78.5 Hyperlipidemia, unspecified; F41.8 Other specified anxiety disorders; Z79.82 Long term (current) use of aspirin; Z79.899 Other long term (current) drug therapy; Z87.891 Personal history of nicotine dependence
CPT/HCPCS: 36415; 71020; 80053; 82607; 82728; 82746; 83036; 83550; 83605; 85025; 85045; 87077; 87804 ×2; 96361; 99285; A9270; J0696; J7040; 36569; 76937; 76937-26; 77001; 77001-26; 80048; 81001; 82272; 82962; 83630; 87040; 87046; 87070; 87186; 87205; 87324; 87899; 93005; 93306; 94640; 94664; 96360; 96365; 99284; J0456; J0690; J1644; J1815-GY; J2700; J2920; J3370; J7030; J7050